=== PATIENT | female | born 1970 | race Caucasian/White ===

== ENCOUNTER → 2016-04-06 | Outpatient (CLI) | payer OTHER ==
[2016-04-06 14:12] LABS: Anisocytosis Slight; CH 23.4; CHCM 31.7; HCT 38.9 % (34.0-46.0); HDW 2.73; HGB 12.1 gm/dL (11.4-16.0); Hypochromasia Slight; MCH 23.1 pg (25.0-35.0); MCHC 31.1 g/dL (31.0-37.0); MCV 74.2 fL (80.0-100.0); Mean Platelet Volume 7.4; Microcytosis Moderate; RBC 5.25 m/uL (3.80-5.40); RDW 16.8 % (11.5-15.5); WBC 8.5 k/uL (3.8-10.6)
[2016-04-06 14:32] LABS: AST 17 U/L (14-36); Blood Urea Nitrogen 14 mg/dL (7-17); Potassium 4.5 mmol/L (3.5-5.1); Sodium 142 mmol/L (137-145); Total Bilirubin 0.4 mg/dL (0.2-1.3)
[2016-04-06 15:18] LABS: ALT 31 U/L (9-52); Alkaline Phosphatase 86 U/L (38-126); Anion Gap 11 mmol/L; Calcium 9.7 mg/dL (8.4-10.2); Carbon Dioxide 26 mmol/L (22-30); Chloride 105 mmol/L (98-107); Cholesterol 249 mg/dL (<200); Glucose 93 mg/dL (74-99); HDL Cholesterol 56 mg/dL (40-60); Non-African American GFR(MDRD) >60 (>60 ml/min/1.73 sqM); Total Protein 7.5 g/dL (6.3-8.2); Triglycerides 216 mg/dL (<150)
== END | disposition home or self-care (01) ==
LOC: LABWHC1 13:17
PROVIDERS: ATTEND Family Medicine
DX: K21.9 Gastro-esophageal reflux disease without esophagitis (principal); E03.9 Hypothyroidism, unspecified; E66.01 Morbid (severe) obesity due to excess calories; R73.01 Impaired fasting glucose
CPT/HCPCS: 36415; 80053; 80061; 83735; 84439; 84443; 84481; 85027

== ENCOUNTER → 2016-05-24 | Outpatient (CLI) | payer OTHER ==
--- NOTE | 2016-05-26 08:29 | MM ---
Reason for exam: screening (asymptomatic). Last mammogram was performed 2 years and 10 months ago. Physical Findings: A clinical breast exam by your physician is recommended on an annual basis and results should be correlated with mammographic findings. MG Screening Mammo w CAD Bilateral CC and MLO view(s) were taken. Prior study comparison: July 23, 2013, bilateral digital screening mammo w/CAD. There are scattered fibroglandular densities. No significant changes when compared with prior studies. ASSESSMENT: Negative, BI-RAD 1 RECOMMENDATION: Routine screening mammogram of both breasts in 1 year.
== END | disposition home or self-care (01) ==
LOC: RADMAMWWP 11:23
PROVIDERS: ATTEND Obstetrics & Gynecology
DX: Z12.31 Encounter for screening mammogram for malignant neoplasm of breast (principal)

== ENCOUNTER 2016-08-30 18:51 | Emergency (ER) | payer OTHER ==
[2016-08-30 19:27] VITALS: BP 131/76; PULSE 70; RESP 20; TEMP 97.9
--- NOTE | 2016-08-30 19:50 | ED ---
Burn/Smoke HPI - General Chief complaint: Burn/Smoke Inhalation Stated complaint: BURN ON LEFT HAND Time Seen by Provider: 08/30/16 19:34 Source: patient, RN notes reviewed Mode of arrival: ambulatory Limitations: no limitations - History of Present Illness Initial comments: Patient is a 46-year-old female presents to the emergency room for evaluation of left hand burn. Patient states that she was making tortillas on Tuesday night and the grease splashed up on top of her left hand/thumb. Patient states she immediately put her hand under cold water and applied aloe vera lotion on it. Patient states that the pain has improved but she noticed that the area has become hard. Patient states she wasn't sure if this was normal for a burn so she thought it should be evaluated. Patient denies numbness or tingling in her thumb. Patient states the burn is only on the dorsal portion of her thumb. Patient denies any other injuries during incident. Patient denies any swelling or surrounding erythema. - Related Data Previous Rx's Medication Instructions Recorded SILVER sulfADIAZINE CREAM 1 applic TOPICAL DAILY #1 tube 08/30/16 [Silvadene Cream] Allergies Allergy/AdvReac Type Severity Reaction Status Date / Time Penicillins Allergy Unknown Verified 08/30/16 19:27 Childhood Review of Systems ROS Statement: Those systems with pertinent positive or pertinent negative responses have been documented in the HPI. ROS Other: All systems not noted in ROS Statement are negative. Past Medical History Past Medical History: No Reported History History of Any Multi-Drug Resistant Organisms: None Reported Past Surgical History: No Surgical Hx Reported Past Psychological History: No Psychological Hx Reported Smoking Status: Never smoker Past Alcohol Use History: None Reported Past Drug Use History: None Reported General Exam - General Exam Comments Initial Comments: Sitting in exam room, no acute distress. Limitations: no limitations General appearance: alert, in no apparent distress Head exam: Present: atraumatic, normocephalic, normal inspection Eye exam: Present: normal appearance ENT exam: Present: normal exam Neck exam: Present: normal inspection Respiratory exam: Present: normal lung sounds bilaterally. Absent: respiratory distress Cardiovascular Exam: Present: regular rate, normal rhythm, normal heart sounds Extremities exam: Present: normal inspection Back exam: Present: normal inspection Neurological exam: Present: alert, oriented X3, CN II-XII intact, normal gait Psychiatric exam: Present: normal affect, normal mood Skin exam: Present: warm, dry, other (Healing first degree burn over base of thumb and healing second degree burn with small blisters over the dorsal portion of her thumb over the DIP joint. Burn is not circumferential.) Course Vital Signs 08/30/16 19:25 Temperature 97.9 F Pulse Rate 70 Respiratory 20 Rate Blood Pressure 131/76 O2 Sat by Pulse 99 Oximetry Medical Decision Making - Medical Decision Making Patient is a 46-year-old female presents to the emergency room for evaluation of left hand burn. Patient does appear to have a healing second-degree burn over dorsal portion of left thumb. Patient given Silvadene advise follow-up with primary care provider if symptoms are not improving. No significant swelling around the area. No surrounding erythema. No signs of infection. Patient states she understands everything that was discussed with her. Return parameters discussed. Case discussed with Dr. Chavez. Disposition Clinical Impression: Second degree burn Disposition: HOME SELF-CARE Condition: Good Instructions: Second Degree Burn (ED) Additional Instructions: Keep area clean with antibacterial soap and water. Apply Silvadene cream as directed. Take Tylenol or Motrin as needed for discomfort. Please follow up with primary care provider in 1-2 days for reevaluation. If any new symptom arises or symptoms worsen, return to ER as soon as possible. Prescriptions: SILVER sulfADIAZINE CREAM [Silvadene Cream] 1 applic TOPICAL DAILY #1 tube Referrals: Joie Park MD [Primary Care Provider] - 1-2 days Time of Disposition: 19:48
== END 2016-08-30 20:06 | disposition home or self-care (01) ==
LOC: EC 18:51
DX: T23.212A Burn of second degree of left thumb (nail), initial encounter (principal); T31.0 Burns involving less than 10% of body surface; Z88.0 Allergy status to penicillin; X19.XXXA Contact with other heat and hot substances, initial encounter
CPT/HCPCS: 99283

== ENCOUNTER → 2016-10-20 | Outpatient (CLI) | payer OTHER ==
--- NOTE | 2016-10-22 12:28 | P.STRESS ---
- Stress Test Note Stress Test Results/Findings: Exam Performed: stress test Exam Date: 10/20/16 Reason for Exam: Chest Pain Height: 5 ft 6 in Weight: 111.584 kg Protocol: Car Stage: 2 Duration of Exercise: 8:03 Resting Heart Rate: 69 Resting Blood Pressure: 129/94 Maximum Achieved Heart Rate: 159 Maximum Achieved Blood Pressure: 170/98 85% PMHR: 150 100% PMHR: 176 METS: 9.7 Technologist Comment: Stress Test Results/Findings: Resting EKG shows normal sinus rhythm with normal NH interval and QRS duration and normal ST-T waves no ST segment depression suggestive of ischemia is noted. No dysrhythmias are noted patient did not complain of any chest pain during the test. Conclusion resting electrocardiogram is not suggestive of ischemia. Patient's exercise tolerance is normal. No dysrhythmias are noted.
== END ==
LOC: RADNMMAIN 11:14
PROVIDERS: ATTEND Family Medicine
DX: R07.9 Chest pain, unspecified (principal)
CPT/HCPCS: 93017

== ENCOUNTER → 2016-12-16 | Outpatient (CLI) | payer OTHER ==
[2016-12-16 12:34] LABS: Appearance,Urine Clear (Clear); Bilirubin,Urine Negative (Negative); Glucose,Urine (UA) Negative (Negative); Ketones,Urine Negative (Negative); Leukocyte Esterase,Urine Negative (Negative); Nitrite,Urine Negative (Negative); Protein,Urine Negative (Negative); Specific Gravity,Urine 1.013 (1.001-1.035); UA Billing (MACRO vs. MICRO) CHEM; Urobilinogen,Urine <2.0 mg/dL (<2.0)
[2016-12-16 13:03] LABS: Anisocytosis Slight; Basophils % (A) 0 %; CH 24.4; Eosinophils # (A) 0.1 k/uL (0-0.7); Eosinophils % (A) 2 %; HCT 37.4 % (34.0-46.0); HGB 12.4 gm/dL (11.4-16.0); Luc % (Auto) 1; Lymphocytes # (A) 1.9 k/uL (1.0-4.8); Lymphocytes % (A) 22 %; MCH 23.9 pg (25.0-35.0); MCHC 33.2 g/dL (31.0-37.0); Mean Platelet Volume 8.8; Microcytosis Moderate; Monocytes # (A) 0.4 k/uL (0-1.0); Monocytes % (A) 5 %; Neutrophils # (A) 6.2 k/uL (1.3-7.7); Neutrophils % (A) 70 %; RBC 5.19 m/uL (3.80-5.40); RDW 18.1 % (11.5-15.5); WBC 8.7 k/uL (3.8-10.6); WBC (Perox) 9.13
[2016-12-16 13:16] LABS: Anion Gap 11 mmol/L; Blood Urea Nitrogen 11 mg/dL (7-17); Calcium 9.2 mg/dL (8.4-10.2); Carbon Dioxide 20 mmol/L (22-30); Chloride 106 mmol/L (98-107); Glucose 94 mg/dL (74-99); Non-African American GFR(MDRD) >60 (>60 ml/min/1.73 sqM); Potassium 4.6 mmol/L (3.5-5.1); Sodium 137 mmol/L (137-145)
[2016-12-16 15:48] LABS: Manual Review Performed
== END | disposition home or self-care (01) ==
LOC: LABPAT 11:40
PROVIDERS: ATTEND Urology
DX: E66.01 Morbid (severe) obesity due to excess calories (principal); E21.1 Secondary hyperparathyroidism, not elsewhere classified; E89.1 Postprocedural hypoinsulinemia; D50.9 Iron deficiency anemia, unspecified; K90.9 Intestinal malabsorption, unspecified; E55.9 Vitamin D deficiency, unspecified; K76.9 Liver disease, unspecified; N19 Unspecified kidney failure; K50.90 Crohn's disease, unspecified, without complications
CPT/HCPCS: 36415; 80048; 81003; 85025; 87086

== ENCOUNTER 2016-12-23 11:24 | Observation (INO) | payer OTHER ==
[2016-12-17 15:05] VITALS: BMI 37.5
[~2016-12-23 11:24] MED LIST: DEXAMETHASONE SOD PHOSPHATE 10 MG/ML 1 ML VIAL IV ONE; HYDROmorphone 0.5 MG/0.5 ML SYRINGE IVP PRN; ONDANSETRON 4 MG/2 ML VIAL IVP ONE; ceFAZolin 1,000 MG in DEXTROSE/WATER 1 50ML.BAG IV ONE
[2016-12-23] MEDS ORDERED: LIDOCAINE 1% 20 ML VIAL (10MG/ML) FOR IV START INTRADERMA ONE (12:21)
[2016-12-23] MEDS: LACTATED RINGERS 1,000 ML IV SCH (12:21)
[2016-12-23] MEDS ORDERED: VASOPRESSIN 20 UNIT/ML 1 ML VIAL SQ ONE (13:33)
[2016-12-23] MEDS ORDERED: KETOROLAC 30 MG/ML 1 ML VIAL ONE (13:35)
[2016-12-23] MEDS ORDERED: PROPOFOL 10 MG/ML 20 ML VIAL IV ONE (13:35)
[2016-12-23] MEDS ORDERED: LIDOCAINE 1% INJ 10MG/ML (20 ML MDV) ONE (13:35)
[2016-12-23] MEDS ORDERED: fentaNYL (PF) 50 MCG/ML 2 ML AMP ONE (13:35)
[2016-12-23] MEDS ORDERED: MIDAZOLAM 2 MG/2 ML VIAL ONE (13:35)
[2016-12-23] MEDS ORDERED: HYDROmorphone (PF) 1 MG/ML ONE (13:35)
[2016-12-23] MEDS ORDERED: SUCCINYLCHOLINE CHLORIDE 100 MG/5 ML SYR IV ONE (13:35)
[2016-12-23] MEDS ORDERED: ALBUTEROL NEBULIZED 2.5 MG/3 ML INHALATION PRN (14:45)
[2016-12-23] MEDS ORDERED: HYDROcodone/APAP 7.5-325MG 1 EACH TAB PO PRN (14:50)
--- NOTE | 2016-12-23 14:55 | P.OP ---
Date of Procedure: 12/23/16 Preoperative Diagnosis: Stress urinary incontinence Postoperative Diagnosis: Stress urinary incontinence Procedure(s) Performed: Pubovaginal sling with cystoscopy Anesthesia: LANDON Surgeon: Gilmar Kohler Estimated Blood Loss (ml): 25 Pathology: none sent Condition: stable Disposition: PACU Indications for Procedure: The patient is a 46-year-old morbidly obese female with stress urinary incontinence she comes for a pubovaginal sling with autologous fascia Description of Procedure: Patient is brought to the operating suite she is given a successful general endotracheal anesthesia. She's placed lithotomy position with a sterile vaginal prep and drape. She also has an abdominal prep. A Heck catheters introduced sterilely. The labia are sewn laterally with 2-0 silk. A vaginal speculum was placed. The anterior vaginal mucosa was elevated off the submucosa with 10 mL of 20 units of Pitressin and 60 mL of saline. A midline suburethral incision is made. With Metzenbaum scissors I dissect lateral the bladder neck bilaterally. I penetrate the endopelvic fascia bilaterally. I then make a suprapubic Pfannenstiel incision. I dissect down to rectus fascia. The rectus fascias cleaned off. A 2 x 8 cm section of rectus fascia is excised. This is for the graft. Rectus fascias closed with 2 running 0 PDS. Through the ends of the graft are placed 2-0 Prolene's. I then passed the Stamey needles retropubically at the corners of the pubis into the vaginal space. A make sure not to injure the bladder. This is confirmed endoscopically with a 17-Kinyarwanda cystoscope with Foroblique lens. I attached the Prolenes placed in the ends of the graft to the Stamey needles and pull the Stamey needles back suprapubically. The graft lay at the bladder neck somewhat nicely. I attached the graft to the subcu 0 silk tissue with 3-0 Vicryl. The Prolenes were then tied to one another over the rectus fascia such that one to 2 fingerbreadths can fit underneath the Prolene. I then closed the subcutaneous tissue and the skin with 4-0 Vicryl. I closed the vaginal mucosa with 2-0 Vicryl. A vaginal packing is placed. The labial stitches are removed. The urine remains clear in the Heck. The patient is awakened and returned recovery room good condition. Blood loss is approximately 25 mL.
[2016-12-23] MEDS ORDERED: LACTATED RINGERS 1,000 ML IV ONE ×2 (15:18)
[2016-12-23] MEDS: ONDANSETRON 4 MG/2 ML VIAL IVP PRN (16:18)
[2016-12-23] MEDS: KETOROLAC 30 MG/ML 1 ML VIAL IVP PRN (18:24)
[2016-12-24] MEDS: ONDANSETRON 4 MG/2 ML VIAL IVP PRN (00:40)
[2016-12-24] MEDS: KETOROLAC 30 MG/ML 1 ML VIAL IVP PRN ×2 (00:40→06:53)
[2016-12-24] MEDS: DEXTROSE 5%-0.45% NACL 1,000 ML IV SCH ×2 (00:54→07:09)
[2016-12-24 04:27] VITALS: RESP 16
--- NOTE | 2016-12-24 06:51 | P.PN ---
Subjective The patient underwent a pubovaginal sling yesterday. She did well overnight. She has some incisional pain as expected. Her vital signs are stable. The catheter and packing will be removed. If she voids well she'll probably discharged home later today. Objective - Vital Signs Vital signs: Vital Signs Temp 97.2 F L 12/24/16 03:10 Pulse 61 12/24/16 03:10 Resp 16 12/24/16 03:10 BP 110/63 12/24/16 03:10 Pulse Ox 100 12/24/16 03:10 Intake & Output 12/23/16 12/23/16 12/24/16 06:59 18:59 06:59 Intake Total 1250 Output Total 550 1100 Balance 700 -1100 Intake: IV 1250 Output: Urine 500 1100 Uretheral (Heck) 300 Estimated Blood Loss 50 Other: Voiding Method Indwelling Catheter # Emeses 1
[2016-12-24 06:52] VITALS: BP 121/70; TEMP 97.7
--- NOTE | 2016-12-24 06:52 | P.DS ---
Providers Date of admission: 12/24/16 02:07 Attending physician: Gilmar Kohler Primary care physician: [facility] Course: The patient was admitted 12/23/2016 for a pubovaginal sling. She did well. Overnight her pain was controlled with pain medication. Vital signs are stable. Her urine output was good. The catheters removed this morning. If she voids well she'll be discharged home later today. She'll resume her home medication. Activity will be limited. She'll be given a prescription of Siloam for pain. She'll follow-up in the office in one week. Procedures: Pubovaginal sling Patient Condition at Discharge: Good Plan - Discharge Summary New Discharge Prescriptions: New HYDROcodone/APAP 5-325MG [Siloam 5-325] 1 tab PO Q4HR PRN #20 tab PRN Reason: Pain Control No Action Diclofenac Sodium [Voltaren] 75 mg PO BID PRN PRN Reason: Pain Albuterol Inhaler [Ventolin Hfa Inhaler] 1 - 2 puff INHALATION RT-Q6H PRN PRN Reason: Shortness Of Breath Omeprazole 20 mg PO DAILY Discharge Medication List Albuterol Inhaler [Ventolin Hfa Inhaler] 1 - 2 puff INHALATION RT-Q6H PRN [History] Diclofenac Sodium [Voltaren] 75 mg PO BID PRN 12/17/16 [History] Omeprazole 20 mg PO DAILY 12/17/16 [History] HYDROcodone/APAP 5-325MG [Siloam 5-325] 1 tab PO Q4HR PRN #20 tab 12/24/16 [Rx] Follow up Appointment(s)/Referral(s): Gilmar Kohler MD [STAFF PHYSICIAN] - 1 Week Activity/Diet/Wound Care/Special Instructions: Patient may shower. Discharge Disposition: HOME SELF-CARE
[2016-12-24] MEDS: LACTATED RINGERS 1,000 ML IV SCH (07:09)
[2016-12-24 07:14] VITALS: PULSE 60
[2016-12-24] MEDS ORDERED: PANTOPRAZOLE 40 MG TABLET PO SCH (07:30)
== END 2016-12-24 13:31 | disposition home or self-care (01) ==
LOC: OR 11:24 → 6PED 14:56 → OR 12-24 02:06 → 6PED 12-24 02:07
PROVIDERS: ADMIT Urology; ATTEND Urology
DX: N39.46 Mixed incontinence (principal); Z79.899 Other long term (current) drug therapy; Z88.0 Allergy status to penicillin; J45.909 Unspecified asthma, uncomplicated
CPT/HCPCS: 57288; G0378; J2250; J1100; J2405 ×2; J2001; J3010; J1885 ×2; J1170; J0690; J0330; J2704

== ENCOUNTER 2017-01-02 00:19 | Emergency (ER) | payer OTHER ==
[2017-01-02 00:23] VITALS: BP 148/73; PULSE 71; RESP 20; TEMP 98.3
--- NOTE | 2017-01-02 01:01 | ED ---
Skin/Abscess/FB HPI - General Chief complaint: Skin/Abscess/Foreign Body Stated complaint: post surgery concerns Time Seen by Provider: 01/02/17 00:39 Source: patient Mode of arrival: ambulatory Limitations: no limitations - History of Present Illness Initial comments: 46-year-old female patient presents today for evaluation of her suprapubic abdominal incision. Patient underwent bladder sling surgery with Dr. Kohler on 12/30/2016. States that things have been healing up nicely. She states that her stay sugars have come off. She states that she has been having some coughing for the last week and a half. States that tonight she was in bed when she coughed she felt something give way near her incision and when she looked down she had a wet spot on the bed. States the drainage was clear and contained no blood or pus. She states that the fluid did not have an odor. She states that she has not had any significant abdominal pain. States that she has been caring for her incision as directed by her surgeon. She denies any fever, chills, nausea, vomiting, hematuria, dysuria, urinary urgency, urinary frequency, constipation, or diarrhea. She denies any shortness of breath, sputum production, nasal congestion, or nasal drainage. - Related Data Home Medications Medication Instructions Recorded Confirmed Albuterol Inhaler [Ventolin Hfa 1 - 2 puff INHALATION RT-Q6H PRN 12/17/16 Inhaler] Diclofenac Sodium [Voltaren] 75 mg PO BID PRN 12/17/16 01/02/17 Omeprazole 20 mg PO DAILY 12/17/16 01/02/17 Previous Rx's Medication Instructions Recorded HYDROcodone/APAP 5-325MG [Dolphin 1 tab PO Q4HR PRN #20 tab 12/24/16 5-325] Allergies Allergy/AdvReac Type Severity Reaction Status Date / Time Penicillins Allergy Unknown Verified 01/02/17 00:23 Childhood Review of Systems ROS Statement: Those systems with pertinent positive or pertinent negative responses have been documented in the HPI. ROS Other: All systems not noted in ROS Statement are negative. Past Medical History Past Medical History: No Reported History History of Any Multi-Drug Resistant Organisms: None Reported Past Surgical History: Hernia Repair Past Psychological History: No Psychological Hx Reported Smoking Status: Never smoker Past Alcohol Use History: None Reported Past Drug Use History: None Reported - Past Family History Father Family Medical History: No Reported History General Exam Limitations: no limitations General appearance: alert, in no apparent distress, other (His is a well- developed, obese female patient in no acute distress. Vital signs upon presentation are temperature 98.3F, pulse 71, respirations 20, blood pressure 148/73, 98% on room air.) Respiratory exam: Present: normal lung sounds bilaterally. Absent: respiratory distress, wheezes, rales, rhonchi, stridor Cardiovascular Exam: Present: regular rate, normal rhythm, normal heart sounds. Absent: systolic murmur, diastolic murmur, rubs, gallop, clicks GI/Abdominal exam: Present: soft, normal bowel sounds, other (There is a horizontal suprapubic incision. It is well approximated. No surrounding erythema, no drainage noted at this time.). Absent: distended, tenderness, guarding, rebound, rigid Neurological exam: Present: alert, oriented X3, CN II-XII intact Psychiatric exam: Present: normal affect, normal mood Skin exam: Present: warm, dry, intact, normal color. Absent: rash Course Vital Signs 01/02/17 00:21 Temperature 98.3 F Pulse Rate 71 Respiratory 20 Rate Blood Pressure 148/73 O2 Sat by Pulse 98 Oximetry Medical Decision Making - Medical Decision Making 46-year-old female patient presented for evaluation of her superpubic abdominal incision. She is status post bladder sling surgery with Dr. Kohler on 2016. Physical examination did reveal a well approximated suprapubic incision with no surrounding erythema and no current drainage. Patient did have a pad over the site without any evidence of drainage to the pad. Patient vital signs are stable, she is afebrile. She will be discharged home to follow-up with her urologist on Tuesday as she has planned. She is instructed to splint while coughing. I did offer her cough medication to assist however she states she feels it is improving and does not want anything at this time. I did instruct her to return here immediately for any new, worsening, or concerning symptoms. She verbalized understanding and agreed with this plan. Disposition Clinical Impression: Encounter for postoperative wound check Disposition: HOME SELF-CARE Condition: Good Instructions: Acute Wound Care (ED) Additional Instructions: Keep area clean and dry. Follow instructions given to by her surgeon for postsurgical care. Follow-up with your surgeon as you have planned. Return immediately for any new, worsening, or concerning symptoms. Referrals: Joie Park MD [Primary Care Provider] - 1-2 days Gilmar Kohler MD [STAFF PHYSICIAN] - 1-2 days Time of Disposition: 01:01
== END 2017-01-02 01:13 | disposition home or self-care (01) ==
LOC: EC 00:19
DX: Z48.01 Encounter for change or removal of surgical wound dressing (principal); E66.9 Obesity, unspecified; Z68.37 Body mass index [BMI] 37.0-37.9, adult; Z88.0 Allergy status to penicillin; Z79.899 Other long term (current) drug therapy
CPT/HCPCS: 99283

== ENCOUNTER → 2017-11-23 | Outpatient (CLI) | payer OTHER ==
--- NOTE | 2017-11-23 10:02 | FL ---
EXAMINATION TYPE: FL barium swallow DATE OF EXAM: 11/23/2017 COMPARISON: None HISTORY: Hiatal hernia, gastroesophageal reflux TECHNIQUE: A double air contrast UGI study is performed. FINDINGS: Overhead radiographs were obtained. Hiatal hernia is identified. In the horizontal drinking position there is incomplete stripping of the esophageal bolus. Mild presbyesophagus may be present. Hiatal he rnia is identified on overhead radiographs. No reflux was observed during the exam. The contour appears normal through the esophagus. No intraluminal or extramural defect is evident. IMPRESSIONS: 1. Small hiatal hernia. 2. Mild presbyesophagus.
--- NOTE | 2017-11-23 16:27 | US ---
EXAMINATION TYPE: US gallbladder DATE OF EXAM: 11/23/2017 COMPARISON: NONE CLINICAL HISTORY: K21.9 Gastroesophageal Reflux Disease,K44.9 Hiatal. Acid reflux EXAM MEASUREMENTS: Liver Length: 18.3 cm Gallbladder Wall: 0.4 cm CBD: 0.5 cm Right Kidney: 11.9 x 5.3 x 4.6 cm Technical limitations due to patient's body habitus and large amount of overlying bowel content Pancreas: limited evaluation due to overlying bowel Liver: enlarged, heterogeneous, difficult to penetrate Gallbladder: stones, GB wall thickened Evidence for sonographic Mcintyre's sign: No CBD: appears wnl as visualized Right Kidney: no evidence of hydronephrosis IMPRESSION: 1. Gallstones. Thickened gallbladder wall. Correlate for acute cholecystitis. 2. Moderate fatty infiltration liver
== END | disposition home or self-care (01) ==
LOC: RADUSWWP 06:58
PROVIDERS: ATTEND Surgery Plastic and Reconstructive Surgery
DX: K80.20 Calculus of gallbladder without cholecystitis without obstruction (principal); K76.0 Fatty (change of) liver, not elsewhere classified; K44.9 Diaphragmatic hernia without obstruction or gangrene; K22.8 Other specified diseases of esophagus; Z88.0 Allergy status to penicillin; Z88.6 Allergy status to analgesic agent
CPT/HCPCS: 74220; 76705

== ENCOUNTER 2018-01-04 08:25 | Day surgery (SDC) | payer OTHER ==
[2018-01-02 10:10] VITALS: BMI 40.6
--- NOTE | 2018-01-04 07:58 | P.GSHP ---
History of Present Illness H&P Date: 01/04/18 CHIEF COMPLAINT: GERD HISTORY OF PRESENT ILLNESS: The patient is a 47-year-old female who presents reports gastroesophageal reflux disease. Upper endoscopy was offered for further evaluation and management. PAST MEDICAL HISTORY: Please see list. PAST SURGICAL HISTORY: Please see list. MEDICATIONS: Please see list. ALLERGIES: Please see list. SOCIAL HISTORY: No illicit drug use FAMILY HISTORY: No reports of Crohn disease or ulcerative colitis. REVIEW OF ORGAN SYSTEMS: CONSTITUTIONAL: No reports of fevers or chills. GI: Denies any blood in stools or constipation. PHYSICAL EXAM: VITAL SIGNS: Stable GENERAL: Well-developed and pleasant in no acute distress. HEENT: No scleral icterus. Extraocular movements grossly intact. Moist buccal mucosa. NECK: Supple without lymphadenopathy. CHEST: Unlabored respirations. Equal bilateral excursions. CARDIOVASCULAR: Regular rate and rhythm. Distal 2+ pulses. ABDOMEN: Soft, nondistended. MUSCULOSKELETAL: No clubbing, cyanosis, or edema. ASSESSMENT: 1. Gastroesophageal reflux disease PLAN: 1. Recommend proceeding with an upper endoscopy Past Medical History Past Medical History: GERD/Reflux History of Any Multi-Drug Resistant Organisms: None Reported Past Surgical History: Hernia Repair Additional Past Surgical History / Comment(s): EGD Past Anesthesia/Blood Transfusion Reactions: Postoperative Nausea & Vomiting ( PONV) Smoking Status: Never smoker - Past Family History Father Family Medical History: No Reported History Medications and Allergies Home Medications Medication Instructions Recorded Confirmed Type Albuterol Inhaler [Ventolin Hfa 1 - 2 puff INHALATION RT-Q6H PRN 12/17/16 History Inhaler] Diclofenac Sodium [Voltaren] 75 mg PO BID PRN 12/17/16 01/02/18 History Omeprazole 20 mg PO DAILY 12/17/16 01/02/18 History Allergies Allergy/AdvReac Type Severity Reaction Status Date / Time Penicillins Allergy Unknown Verified 01/02/18 10:04 Childhood
[~2018-01-04 08:25] MED LIST changes: -DEXAMETHASONE SOD PHOSPHATE 10 MG/ML 1 ML VIAL IV ONE; -HYDROmorphone 0.5 MG/0.5 ML SYRINGE IVP PRN; +LACTATED RINGERS 1,000 ML IV SCH; -ONDANSETRON 4 MG/2 ML VIAL IVP ONE; -ceFAZolin 1,000 MG in DEXTROSE/WATER 1 50ML.BAG IV ONE
[2018-01-04 10:13] VITALS: TEMP 97.2
[2018-01-04] MEDS ORDERED: LIDOCAINE 1% 20 ML VIAL (10MG/ML) FOR IV START INTRADERMA ONE (10:16)
[2018-01-04] MEDS ORDERED: PROPOFOL 10 MG/ML 20 ML VIAL IV ONE (10:27)
[2018-01-04] MEDS ORDERED: LIDOCAINE 1% INJ 10MG/ML (20 ML MDV) ONE (10:27)
--- NOTE | 2018-01-04 10:44 | P.PCN ---
Date of Procedure: 01/04/18 Description of Procedure: PREOPERATIVE DIAGNOSIS: Gastroesophageal reflux disease. Morbid obesity. POSTOPERATIVE DIAGNOSIS: Morbid obesity. Erosive esophagitis with esophageal ulcer Gastroesophageal reflux disease. Diaphragmatic hiatal hernia OPERATION: Esophagogastroduodenoscopy with biopsies along antrum and distal esophagus SURGEON: Regla Josue MD ANESTHESIA: MAC. INDICATIONS: The patient is a 47-year-old female who presents with a history of reflux disease. Benefits and risks of the procedure were described. Informed consent was obtained. DESCRIPTION: The patient was brought into the endoscopy suite and laid in the left lateral decubitus position. An Olympus gastroscope was passed along the posterior oropharynx down to the distal esophagus where the squamocolumnar junction was encountered at 38 cm from the incisors. The stomach was entered and no bile reflux was found. Additional findings are listed below. Biopsies with cold forceps were obtained of the antrum. The first through third portion of the duodenum was examined and unremarkable. Retroflexion of the scope confirmed Hill grade 4 lower esophageal valve. The squamocolumnar junction demonstrated LA grade C erosive esophagitis. The stomach was desufflated. The patient tolerated the procedure well. FINDINGS: Squamocolumnar junction 30 cm from the incisors. Diaphragmatic hiatus at 38 cm. Hiatal hernia, 8 cm Hill grade 4 lower esophageal valve. LA grade C erosive esophagitis. Esophageal ulcerations between 30-36 cm from the incisors No active duodenitis. Chronic gastritis RECOMMENDATIONS: Upper endoscopy as needed. Recommend antacid therapy Plan - Discharge Summary New Discharge Prescriptions: No Action Diclofenac Sodium [Voltaren] 75 mg PO BID PRN PRN Reason: Pain Albuterol Inhaler [Ventolin Hfa Inhaler] 1 - 2 puff INHALATION RT-Q6H PRN PRN Reason: Shortness Of Breath Omeprazole 20 mg PO DAILY Discharge Medication List Albuterol Inhaler [Ventolin Hfa Inhaler] 1 - 2 puff INHALATION RT-Q6H PRN [History] Diclofenac Sodium [Voltaren] 75 mg PO BID PRN 12/17/16 [History] Omeprazole 20 mg PO DAILY 12/17/16 [History]
[2018-01-04 11:04] VITALS: RESP 18
[2018-01-04 11:56] VITALS: BP 120/76; PULSE 61
== END 2018-01-04 12:21 | disposition home or self-care (01) ==
LOC: ORWHC2ENDO 08:25
PROVIDERS: ATTEND Surgery Plastic and Reconstructive Surgery
DX: K29.50 Unspecified chronic gastritis without bleeding (principal); K21.0 Gastro-esophageal reflux disease with esophagitis; K22.10 Ulcer of esophagus without bleeding; K44.9 Diaphragmatic hernia without obstruction or gangrene; E66.01 Morbid (severe) obesity due to excess calories; Z68.41 Body mass index [BMI] 40.0-44.9, adult; Z79.899 Other long term (current) drug therapy; Z88.0 Allergy status to penicillin
CPT/HCPCS: 81025; 43239; J2001; J2704; 88305

== ENCOUNTER → 2018-07-13 | Outpatient (CLI) | payer OTHER ==
[2018-07-13 16:55] LABS: Anisocytosis Slight; HGB 11.4 gm/dL (11.4-16.0); Hypochromasia Moderate; MCH 22.9 pg (25.0-35.0); MCHC 30.9 g/dL (31.0-37.0); MCV 74.2 fL (80.0-100.0); Mean Platelet Volume 7.3; Microcytosis Slight; Platelet Count 271 k/uL (150-450); RBC 4.98 m/uL (3.80-5.40); WBC 7.7 k/uL (3.8-10.6)
== END ==
LOC: LABWHC1 16:00
PROVIDERS: ATTEND Surgery Plastic and Reconstructive Surgery
DX: Z01.812 Encounter for preprocedural laboratory examination (principal)
CPT/HCPCS: 36415; 85027

== ENCOUNTER 2018-07-14 07:24 | Day surgery (SDC) | payer OTHER ==
[2018-07-12 14:14] VITALS: BMI 46.0
[~2018-07-14 07:24] MED LIST changes: +DEXAMETHASONE SOD PHOSPHATE 10 MG/ML 1 ML VIAL IV ONE; +HEPARIN SODIUM,PORCINE 5,000 UNIT/ML 1 ML VIAL SQ ONE; +HYDROmorphone 0.5 MG/0.5 ML SYRINGE IVP PRN; +INDOCYANINE GREEN 25 MG VIAL IV STA; +MORPHINE SULFATE 4 MG/ML SYRINGE IV PRN; +ONDANSETRON 4 MG/2 ML VIAL IVP ONE; +ONDANSETRON 4 MG/2 ML VIAL IVP PRN; +ceFAZolin IN SWFI 2 GM/20 ML SYRINGE IVP ONE
--- NOTE | 2018-07-14 07:24 | P.GSHP ---
History of Present Illness H&P Date: 07/14/18 CHIEF COMPLAINT: Cholecystitis HISTORY OF PRESENT ILLNESS: The patient is a 48-year-old female who presents with history of epigastric including right upper quadrant abdominal pain. She underwent diagnostic studies for her gallbladder. Separately her clinical picture was consistent with cholecystitis. Now she presents for surgical intervention. PAST MEDICAL HISTORY: Please see list PAST SURGICAL HISTORY: Please see list MEDICATIONS: Please see list ALLERGIES: Denies. SOCIAL HISTORY: No illicit drug use or recent tobacco use FAMILY HISTORY: Pertinent for gallbladder disease REVIEW OF ORGAN SYSTEMS: CONSTITUTIONAL: No reports of fevers or chills. HEENT: Denies any troubles with the vision or hearing. ENDOCRINE: No reports of hypothyroidism. No diabetes. PHYSICAL EXAM: VITAL SIGNS: Afebrile vital signs stable GENERAL: Well-developed pleasant in no acute distress. HEENT: No scleral icterus. Extraocular movements grossly intact. Moist buccal mucosa. NECK: Supple without lymphadenopathy. CHEST: Unlabored respirations. Equal bilateral excursions. CARDIOVASCULAR: Regular rate regular rhythm rhythm. Distal 2+ pulses. ABDOMEN: Soft, nondistended. Tender along the epigastrium and right upper quadrant. MUSCULOSKELETAL: No clubbing, cyanosis, or edema. NEURO: Cranial nerves II to XII within normal limits. No focal or lateralizing signs. PSYCH: Alert and oriented to person, place and time. SKIN: Well-perfused good skin turgor. ASSESSMENT: 1. Epigastric and right upper quadrant abdominal pain 2. Chronic cholecystitis 3. Symptomatic gallstones. PLAN: 1. Will need a robotic cholecystectomy possible open. Benefits and risks were described. 2. Heparin for DVT prophylaxis 5000 units. 3. Antibiotic prophylaxis. Past Medical History Past Medical History: Asthma, GERD/Reflux History of Any Multi-Drug Resistant Organisms: None Reported Past Surgical History: Hernia Repair Additional Past Surgical History / Comment(s): bladder mesh 2017 Past Anesthesia/Blood Transfusion Reactions: Postoperative Nausea & Vomiting (PONV) Additional Past Anesthesia/Blood Transfusion Reaction / Comment(s): pt states "after my bladder surgery I threw up I was told by nurse that I was allergic to anesthesia" Smoking Status: Never smoker - Past Family History Father Family Medical History: Cancer Additional Family Medical History / Comment(s): stomach cancer Mother Additional Family Medical History / Comment(s): from "toxicity in blood" Medications and Allergies Home Medications Medication Instructions Recorded Confirmed Type Albuterol Inhaler [Ventolin Hfa 1 - 2 puff INHALATION RT-Q6H PRN 12/17/16 07/12/18 History Inhaler] Omeprazole 40 mg PO DAILY #90 capsule. 01/04/18 07/12/18 Rx Menopaupanic 1 tab PO DAILY 07/12/18 07/12/18 History Allergies Allergy/AdvReac Type Severity Reaction Status Date / Time Penicillins Allergy Unknown Verified 07/12/18 14:06 Childhood anesthesia Allergy Nausea & Uncoded 07/12/18 14:10 Vomiting
[2018-07-14] MEDS ORDERED: LIDOCAINE 1% 20 ML VIAL (10MG/ML) FOR IV START INTRADERMA ONE ×2 (08:00)
[2018-07-14] MEDS ORDERED: SCOPOLAMINE 1.5MG/72HR PATCH TRANSDERM ONE (08:28)
[2018-07-14] MEDS ORDERED: fentaNYL (PF) 50 MCG/ML 2 ML AMP IVP ONE (08:42)
[2018-07-14] MEDS ORDERED: MIDAZOLAM (PF) 2 MG/2 ML VIAL IVP ONE (08:42)
[2018-07-14] MEDS ORDERED: NEOSTIGMINE 1 MG/ML 10 ML VIAL ONE (08:50)
[2018-07-14] MEDS ORDERED: PROPOFOL 10 MG/ML 20 ML VIAL IV ONE (08:50)
[2018-07-14] MEDS ORDERED: ROPIVACAINE 5 MG/ML 30 ML VIAL ONE (08:50)
[2018-07-14] MEDS ORDERED: SUCCINYLCHOLINE CHLORIDE 100 MG/5 ML SYR IV ONE (08:50)
[2018-07-14] MEDS ORDERED: GLYCOPYRROLATE 0.2 MG/ML 2 ML VIAL ONE (08:50)
[2018-07-14] MEDS ORDERED: LIDOCAINE 2%-EPI 1:100,000 20 ML VIAL ONE (08:50)
[2018-07-14] MEDS ORDERED: ROCURONIUM BROMIDE 10 MG/ML 10 ML VIAL IV ONE (08:50)
[2018-07-14] MEDS ORDERED: LIDOCAINE 1% INJ 10MG/ML (20 ML MDV) ONE (08:50)
[2018-07-14] MEDS ORDERED: fentaNYL (PF) 50 MCG/ML 2 ML AMP ONE (08:50)
[2018-07-14 08:58] LABS: Chloride 105 mmol/L (98-107)
[2018-07-14 09:01] LABS: ALT 40 U/L (9-52); AST 23 U/L (14-36); Albumin 4.1 g/dL (3.5-5.0); Alkaline Phosphatase 75 U/L (38-126); Anion Gap 10 mmol/L; Blood Urea Nitrogen 17 mg/dL (7-17); Calcium 9.6 mg/dL (8.4-10.2); Carbon Dioxide 25 mmol/L (22-30); Glucose 114 mg/dL (74-99); Potassium 4.1 mmol/L (3.5-5.1); Sodium 140 mmol/L (137-145); Total Bilirubin 0.3 mg/dL (0.2-1.3)
[2018-07-14] MEDS ORDERED: BUPIVACAIN-EPI 0.5%-1:200,000 30 ML VIAL SQ ONE ×2 (09:12→09:16)
--- NOTE | 2018-07-14 09:25 | P.ONQ ---
Anesthesiology Proc Note - PNB - Peripheral Nerve Block Performed Bilateral Transversus Abdominis Single Time Out Performed: Yes Procedure Start Time: 08:41 Procedure Stop Time: 08:45 Indication: Acute Post-Operative Pain, Analgesia, Dx/Pain Location, Requested by physician Sedation Type: Sedate with meaningful contact maintained Preparation: Sterile Prep Position: Supine Catheter: None Needle Types: On-Q Needle Size: 100mm (4") Needle Gauge: 21 Technique: Ultrasound Injectate: Other (see comment) (0.25% ropivacaine and 2% lidocaine with 1:200k epi 20cc each) Blood Aspirated: No Pain Paresthesia on Injection Noted: No Resistance on Injection: Normal Events: Uneventful and Well Tolerated
[2018-07-14] MEDS ORDERED: LACTATED RINGERS 1,000 ML IV ONE ×2 (09:34→13:10)
--- NOTE | 2018-07-14 09:58 | P.OP ---
Date of Procedure: 07/14/18 Description of Procedure: SURGEON: REGLA JOSUE MD PREOPERATIVE DIAGNOSES: 1. Right upper quadrant abdominal pain 2. Chronic cholecystitis with gallstones 3. Morbid obesity due to excess calories, BMI 46.1 4. Asthma 5. Gastroesophageal reflux disease POSTOPERATIVE DIAGNOSES: 1. Right upper quadrant abdominal pain 2. Chronic cholecystitis with gallstones 3. Morbid obesity due to excess calories, BMI 46.1 4. Asthma 5. Gastroesophageal reflux disease 6. Fatty liver disease OPERATION: Robotic-assisted da Oneil Xi laparoscopic cholecystectomy, multiport ESTIMATED BLOOD LOSS: 5 mL. SPECIMENS REMOVED: Gallbladder. COMPLICATIONS: None. OPERATIVE FINDINGS: 1. Chronic cholecystitis with gallstones INDICATIONS: The patient is a 48-year-old female who presents with cholelcystitis. Surgical intervention with a laparoscopic cholecystectomy was described at length including injury to the biliary tree, bleeding, infection, need for further surgery. Informed consent was obtained. Robotic assisted laparoscopic approach was described. Benefits and risks of the pr ocedure including but not limited to bleeding, infection, injury to the biliary tree was described. Informed consent was obtained. DESCRIPTION OF PROCEDURE: Patient was brought to the operating room, placed in supine position. After general induction, the abdomen had been prepped and draped in standard sterile fashion. The robotic da Oneil XI system was primed. After a timeout protocol was performed, the patient had been prepped and draped in standard sterile fashion. A 5 mm 0 degrees laparoscopic trocar entry was performed along the left upper quadrant. The abdomen insufflated to 15 mmHg pressure which was tolerated well. Diagnostic laparoscopy demonstrated no injury to bowel viscera or mesentery. The liver surface was unremarkable. Next, two 8 mm robotic ports were placed a long the right upper abdomen. The camera 8-mm port was maintained along the epigastrium. Another 8 mm port was placed along the left upper abdominal wall after exchanging the 5 mm port. Please note that the ports were placed at least 10 to 15 cm away from the target anatomy of the gallbladder. The robot was docked along the left lateral abdomen. The patient was repositioned in reverse Trendelenburg position. Using a grasper for arm 3, a grasper for arm 4, including hook cautery for arm 1, the robotic system was docked and primed as described. Instruments were interchanged by the instruction assistant principal including hook cautery, Bovie cautery and clip appliers. I had sat at the console. The gallbladder fundus was retracted over the dome of the liver. Initial attention was brought to the infundibulum which was gently retracted in the inferior lateral approach. Using a grasper, the cystic duct including the cystic artery was carefully skeletonized. Large PLASTIC clips were used throughout the entire case. Using a clip vp publisher development 2 clips were placed proximally, and 1 clip was placed distally along the cystic duct and then cauterized with the cautery. Again care was taken to avoid any injury to the biliary tree as the common bile duct was clearly visualized during this portion of dissection. Next, the cystic artery was similarly clipped and cauterized. Electro-Bovie cautery was used to remove the gallbladder from the hepatic fossa. Hemostasis was checked and found to be adequate. The robot was undocked. I re-scrubbed into the case. Using a 10 mm Endo Catch bag via the left upper quadrant incision, the specimen was removed from the abdominal cavity. All pneumoperitoneum instruments were evacuated from the abdominal cavity. The incisions were reapproximated using 4-0 Monocryl in an interrupted subcuticular fashion. Fascial defects were less than 8 mm in size. Please note along the trocar sites, local anesthetic was placed as a field block prior to insertion of all instruments. Liquid glue was applied to the skin. At the end of the procedure needle, sponge, and instrument count had been verified correct by the surgical supply assistant. The patient was transferred to postanesthesia care unit in stable condition. Intraoperative films were shared with the patient's family who were very pleased with the level of care. Plan - Discharge Summary Discharge Rx Participant: No New Discharge Prescriptions: New RX: Ibuprofen [Motrin] 600 mg PO Q8HR PRN #30 tab PRN Reason: Pain RX: HYDROcodone/APAP 5-325MG [[place] 5-325] 1 tab PO Q6HR PRN 3 Days #10 tab PRN Reason: Pain No Action Albuterol Inhaler [Ventolin Hfa Inhaler] 1 - 2 puff INHALATION RT-Q6H PRN PRN Reason: Shortness Of Breath RX: Omeprazole 40 mg PO DAILY #90 capsule.dr Rivera 1 tab PO DAILY Discharge Medication List Albuterol Inhaler [Ventolin Hfa Inhaler] 1 - 2 puff INHALATION RT-Q6H PRN 12/17/16 [History] RX: Omeprazole 40 mg PO DAILY #90 capsule. 01/04/18 [Rx] Menopaupanic 1 tab PO DAILY 07/12/18 [History] RX: HYDROcodone/APAP 5-325MG [[place] 5-325] 1 tab PO Q6HR PRN 3 Days #10 tab 07/14/18 [Rx] RX: Ibuprofen [Motrin] 600 mg PO Q8HR PRN #30 tab 07/14/18 [Rx] Follow up Appointment(s)/Referral(s): Regla Josue MD [STAFF PHYSICIAN] - 07/17/18 Patient Instructions/Handouts: Laparoscopic Cholecystectomy (DC) Activity/Diet/Wound Care/Special Instructions: No lifting over 4 pounds in 1 week. May shower. No bathtub soaks. No fatty greasy foods for 2 days. Discharge Disposition: HOME SELF-CARE
[2018-07-14 10:02] VITALS: TEMP 97.6
[2018-07-14 10:59] VITALS: RESP 16
[2018-07-14] MEDS ORDERED: ONDANSETRON 4 MG/2 ML VIAL IVP ONE (12:46)
[2018-07-14] MEDS ORDERED: HYDROcodone/APAP 5-325MG 1 EACH TAB PO ONE (13:48)
[2018-07-14 14:00] VITALS: BP 126/81; PULSE 64
== END 2018-07-14 14:22 | disposition home or self-care (01) ==
LOC: OR 07:24
PROVIDERS: ATTEND Surgery Plastic and Reconstructive Surgery
DX: K80.10 Calculus of gallbladder with chronic cholecystitis without obstruction (principal); E66.01 Morbid (severe) obesity due to excess calories; Z68.42 Body mass index [BMI] 45.0-49.9, adult; J45.909 Unspecified asthma, uncomplicated; K21.9 Gastro-esophageal reflux disease without esophagitis; K76.0 Fatty (change of) liver, not elsewhere classified; Z88.0 Allergy status to penicillin; Z88.4 Allergy status to anesthetic agent; Z79.899 Other long term (current) drug therapy; Z88.6 Allergy status to analgesic agent
CPT/HCPCS: 47562; 64488; 81025; 88304; 80053; J1644; J1100; J2710; J2405; J2001; J3010; J2795; J0330; J2704; J0690; J2250

== ENCOUNTER → 2019-05-18 | Day surgery (SDC) | payer OTHER ==
[2019-05-16 10:50] VITALS: BMI 42.4
[~2019-05-18] MED LIST changes: -HEPARIN SODIUM,PORCINE 5,000 UNIT/ML 1 ML VIAL SQ ONE; -INDOCYANINE GREEN 25 MG VIAL IV STA; +KETOROLAC 30 MG/ML 1 ML VIAL IVP SCH; +LIDOCAINE 1% 20 ML VIAL (10MG/ML) FOR IV START INTRADERMA PRN; +LIDOCAINE 1%-EPI 1:100,000 20 ML VIAL SQ ONE; +MIDAZOLAM 2 MG/2 ML VIAL ONE; -MORPHINE SULFATE 4 MG/ML SYRINGE IV PRN; -ONDANSETRON 4 MG/2 ML VIAL IVP ONE; +PROPOFOL 10 MG/ML 20 ML VIAL IV ONE; +Pre Op ABX Message 1 EACH MISC MISCELLANE ONE; +SCOPOLAMINE 1.5MG/72HR PATCH TRANSDERM ONE; -ceFAZolin IN SWFI 2 GM/20 ML SYRINGE IVP ONE; +fentaNYL (PF) 50 MCG/ML 2 ML AMP ONE
--- NOTE | 2019-05-18 13:34 | P.OP ---
Date of Procedure: 05/18/19 Preoperative Diagnosis: Right carpal tunnel syndrome Postoperative Diagnosis: Right carpal tunnel syndrome Procedure(s) Performed: Right endoscopic carpal tunnel release Anesthesia: other (General + local) Surgeon: Ross Mclaen Estimated Blood Loss (ml): 1 Condition: stable Disposition: PACU Indications for Procedure: The patient is a 49-year-old female who was diagnosed with right carpal tunnel syndrome. Treatment options (and associated risks and benefits) were discussed in the office. The patient elected surgical release. In preop, additional questions were addressed and the patient wished to proceed with surgery. Consent forms were signed. The operative site was confirmed and marked. Description of Procedure: The patient was positioned supine with the right arm on a hand table. A tourniquet was applied. Anesthesia was administered uneventfully. A time-out was performed, confirming patient identifiers, the operative side, site and the procedure to be performed: all team members expressed agreement. Using aseptic technique, local anesthetic was injected into the subcutaneous tissues around the planned incision. The right upper extremity was then prepped and draped in standard, sterile fashion. The limb was exsanguinated with an Esmarch and the t ourniquet was inflated. Loupe magnification was used throughout the case for optimum visualization. A 1.5 cm transverse incision was marked proximal to the wrist flexion crease, in line with the radial border of the ring finger. The skin was sharply incised and the subcutaneous tissues were bluntly spread. The volar carpal fascia was identified and sharply incised in line with the path of the nerve. A synovial elevator was used to release adhesions on the underside of the transverse carpal ligament. The washboard effect was palpable. A dilator was inserted to sound and enlarge the carpal tunnel. The tunnel was fairly tight. The hamate hook was palpable ulnarly. The side-specific guide and camera were inserted. The transverse carpal ligament was clearly visualized above. The distal edge of the ligament was identified and palpated with a probe. A rasp was used to clear the remaining synovial adhesions. The endoscopic blade was inserted and the distal half of the ligament was sharply incised. Residual distal transverse fibers were released and then the proximal portion of the ligament was divided. Wide release of ligament was visually confirmed. The camera was removed. The v olar carpal fascia, proximal and distal to the incision, was released with scissors under direct visualization. A layer of thickened perineural tissue was identified along the nerve, causing persistent compression. A limited local neurolysis was performed, which improved both the appearance and mobility of the nerve. The tourniquet was released after 15 minutes at 250 mm Hg. Excellent hemostasis was obtained with manual pressure. The wound was thoroughly irrigated with normal saline. The incision was closed with interrupted 4-0 Nylon sutures. Additional local anesthetic with epinephrine was injected for adjunctive postoperative pain control and hemostasis. A soft, sterile dressing was applied. All sponge, needle and instrument counts were correct at the end of the case. The patient tolerated the procedure well and was transferred to recovery in stable condition.
[2019-05-18 13:36] VITALS: TEMP 97.1
[2019-05-18 14:22] VITALS: RESP 16
[2019-05-18 14:41] VITALS: BP 124/84; PULSE 72
== END | disposition home or self-care (01) ==
LOC: OR 10:58
PROVIDERS: ATTEND Orthopaedic Surgery
DX: G56.03 Carpal tunnel syndrome, bilateral upper limbs (principal); G56.21 Lesion of ulnar nerve, right upper limb; K21.9 Gastro-esophageal reflux disease without esophagitis; E66.9 Obesity, unspecified; Z79.899 Other long term (current) drug therapy; Z88.0 Allergy status to penicillin; Z88.6 Allergy status to analgesic agent; Z83.3 Family history of diabetes mellitus; Z68.41 Body mass index [BMI] 40.0-44.9, adult
CPT/HCPCS: 29848; J2250; J1100; J2405; J3010; J2704

== ENCOUNTER → 2020-02-28 | Outpatient (CLI) | payer OTHER ==
--- NOTE | 2020-02-28 12:41 | FL ---
EXAMINATION: Cervical and Thoracic Esophagram DATE OF EXAM: 02/28/2020 CLINICAL INDICATION: 50-year-old female K21.9, worsening GERD COMPARISON: 11/23/2017 Total Fluoroscopy Time: 2 minutes 3 seconds Total images: 50 FINDINGS: The swallowing mechanism is normal. There is slight thickening of the cricopharyngeus. The thoracic portion has a normal course and caliber and normal motility. The mucosa is normal and no persistent filling defect is encountered. There is a moderate sliding hiatal hernia and severe spontaneous gastroesophageal reflux to the thora cic inlet when the patient is brought supine. IMPRESSION: 1. Moderate-sized sliding hiatal hernia and severe spontaneous gastroesophageal reflux to the thoraci c inlet when the patient is brought supine. 2. Slight hypertrophy of the cricopharyngeus.
== END | disposition home or self-care (01) ==
LOC: RADUSWWP 10:55
PROVIDERS: ATTEND Surgery Plastic and Reconstructive Surgery
DX: K21.9 Gastro-esophageal reflux disease without esophagitis (principal); K44.9 Diaphragmatic hernia without obstruction or gangrene; J39.2 Other diseases of pharynx; Z88.0 Allergy status to penicillin; Z88.6 Allergy status to analgesic agent
CPT/HCPCS: 74220

== ENCOUNTER 2020-06-19 07:11 | Day surgery (SDC) | payer OTHER ==
[2020-06-17 09:55] VITALS: BMI 42.7
[~2020-06-19 07:11] MED LIST changes: -DEXAMETHASONE SOD PHOSPHATE 10 MG/ML 1 ML VIAL IV ONE; -HYDROmorphone 0.5 MG/0.5 ML SYRINGE IVP PRN; -KETOROLAC 30 MG/ML 1 ML VIAL IVP SCH; +LIDOCAINE 1% (10MG/ML) FOR IV START INTRADERMA PRN; -LIDOCAINE 1% 20 ML VIAL (10MG/ML) FOR IV START INTRADERMA PRN; -LIDOCAINE 1%-EPI 1:100,000 20 ML VIAL SQ ONE; -MIDAZOLAM 2 MG/2 ML VIAL ONE; -ONDANSETRON 4 MG/2 ML VIAL IVP PRN; -PROPOFOL 10 MG/ML 20 ML VIAL IV ONE; -Pre Op ABX Message 1 EACH MISC MISCELLANE ONE; -SCOPOLAMINE 1.5MG/72HR PATCH TRANSDERM ONE; -fentaNYL (PF) 50 MCG/ML 2 ML AMP ONE
--- NOTE | 2020-06-19 07:37 | P.GSHP ---
History of Present Illness H&P Date: 06/19/20 CHIEF COMPLAINT: GERD HISTORY OF PRESENT ILLNESS: The patient is a 50-year-old female who presents reports gastroesophageal reflux disease. Upper endoscopy was offered for further evaluation and management. PAST MEDICAL HISTORY: Please see list. PAST SURGICAL HISTORY: Please see list. MEDICATIONS: Please see list. ALLERGIES: Please see list. SOCIAL HISTORY: No illicit drug use FAMILY HISTORY: No reports of Crohn disease or ulcerative colitis. REVIEW OF ORGAN SYSTEMS: CONSTITUTIONAL: No reports of fevers or chills. GI: Denies any blood in stools or constipation. PHYSICAL EXAM: VITAL SIGNS: Stable GENERAL: Well-developed and pleasant in no acute distress. HEENT: No scleral icterus. Extraocular movements grossly intact. Moist buccal mucosa. NECK: Supple without lymphadenopathy. CHEST: Unlabored respirations. Equal bilateral excursions. CARDIOVASCULAR: Regular rate and rhythm. Distal 2+ pulses. ABDOMEN: Soft, nondistended. MUSCULOSKELETAL: No clubbing, cyanosis, or edema. ASSESSMENT: 1. Gastroesophageal reflux disease PLAN: 1. Recommend proceeding with an upper endoscopy Past Medical History Past Medical History: Asthma, GERD/Reflux, Osteoarthritis (OA) Additional Past Medical History / Comment(s): hiatal hernia, History of Any Multi-Drug Resistant Organisms: None Reported Past Surgical History: Bladder Surgery, Cholecystectomy, Hernia Repair, Orthopedic Surgery Additional Past Surgical History / Comment(s): bladder suspension with mesh, rt carpal tunnel Past Anesthesia/Blood Transfusion Reactions: Postoperative Nausea & Vomiting (PONV) Additional Past Anesthesia/Blood Transfusion Reaction / Comment(s): did well with last or with "patch behind ear" Smoking Status: Former smoker - Past Family History Father Family Medical History: Cancer Additional Family Medical History / Comment(s): stomach cancer Mother Additional Family Medical History / Comment(s): from "toxicity in blood" Medications and Allergies Home Medications Medication Instructions Recorded Confirmed Type Albuterol Inhaler (Mhu) [Ventolin 1 - 2 puff INHALATION RT-Q6H PRN 12/17/16 History Hfa Inhaler] Omeprazole 40 mg PO DAILY #90 capsule. 01/04/18 06/17/20 Rx Apple Cider Vinegar(Dose Unkno 1 tab PO DAILY 06/17/20 06/17/20 History Ascorbic Acid [Vitamin C] 500 mg PO DAILY 06/17/20 06/17/20 History Calcium.Magnesium.Zinc 1 tab PO DAILY 06/17/20 06/17/20 History Elderberry Fruit and Flower [Black 1,000 mg PO DAILY 06/17/20 06/17/20 History Elderberry 575 mg Cap] Garlic 1 each PO DAILY 06/17/20 06/17/20 History Allergies Allergy/AdvReac Type Severity Reaction Status Date / Time Penicillins Allergy Unknown Verified 06/17/20 09:47 Childhood
[2020-06-19 07:49] VITALS: RESP 16; TEMP 97.7
[2020-06-19] MEDS ORDERED: fentaNYL (PF) 50 MCG/ML 2 ML AMP ONE (07:57)
[2020-06-19] MEDS ORDERED: PROPOFOL 10 MG/ML 20 ML VIAL IV ONE (07:57)
[2020-06-19] MEDS ORDERED: LIDOCAINE 1% INJ 10MG/ML (20 ML MDV) ONE (07:57)
[2020-06-19] MEDS ORDERED: MIDAZOLAM 2 MG/2 ML VIAL ONE (07:57)
--- NOTE | 2020-06-19 08:00 | P.PCN ---
Date of Procedure: 06/19/20 Description of Procedure: PREOPERATIVE DIAGNOSIS: History of colon polyps POSTOPERATIVE DIAGNOSIS: History of colon polyps Sigmoid colon stricture OPERATION: Colonoscopy to the sigmoid colon. SURGEON: Regla Josue MD. ANESTHESIA: MAC. INDICATIONS: The patient is a 50-year-old female who presents for colonoscopy screening. Her last colonoscopy was more 5 years ago. Benefits and risks were described and informed consent was obtained. DESCRIPTION OF PROCEDURE: The patient had undergone Suprep. She had been brought into the operating room and laid in the left lateral decubitus position. After adequate intravenous sedation, the rectum was examined with 2% lidocaine jelly. No external hemo rrhoids were encountered. The rectal tone was loose. No lesions were palpated in the rectal vault. An pediatric Olympus colonoscope was advanced along the rectum to the stenosed sigmoid colon. Despite multiple maneuvers, the scope could not advance beyond 20 cm from the anal verge. As the patient posed high risk for perforation with persistence of the procedure, the procedure was discontinued. The colon was desufflated. The patient had tolerated the procedure well. Withdrawal time was over 6 minutes. FINDINGS: [place] preparation quality scale 1 (1-5) Stricture of the sigmoid colon preventing further advancement of the scope. No external prolapsed hemorrhoids. Scope advanced to sigmoid colon at 20 cm with sigmoid stricture. No arteriovenous malformations. No adenomatous polyps. No focal colitis. RECOMMENDATIONS: Completion of colonoscopy evaluation with barium enema. Plan - Discharge Summary New Discharge Prescriptions: Continue Albuterol Inhaler (Mhu) [Ventolin Hfa Inhaler (Mhu)] 1 - 2 puff INHALATION RT-Q6H PRN PRN Reason: Shortness Of Breath Omeprazole 40 mg PO DAILY #90 capsule. Garabdoulaye 1 each PO DAILY Elderberry Fruit and Flower [Black Elderberry 575 mg Cap] 1,000 mg PO DAILY Ascorbic Acid [Vitamin C] 500 mg PO DAILY Calcium.Magnesium.Zinc 1 tab PO DAILY Apple Cider Vinegar(Dose Unkno 1 tab PO DAILY Discharge Medication List Albuterol Inhaler (Mhu) [Ventolin Hfa Inhaler (Mhu)] 1 - 2 puff INHALATION RT- Q6H PRN 12/17/16 [History] Omeprazole 40 mg PO DAILY #90 capsule. 01/04/18 [Rx] Apple Cider Vinegar(Dose Unkno 1 tab PO DAILY 06/17/20 [History] Ascorbic Acid [Vitamin C] 500 mg PO DAILY 06/17/20 [History] Calcium.Magnesium.Zinc 1 tab PO DAILY 06/17/20 [History] Elderberry Fruit and Flower [Black Elderberry 575 mg Cap] 1,000 mg PO DAILY 06/17/20 [History] Garlic 1 each PO DAILY 06/17/20 [History] Follow up Appointment(s)/Referral(s): Regla Josue MD [STAFF PHYSICIAN] - 06/24/20 Patient Instructions/Handouts: *[facility] - (Anesthesia) Endoscopy Discharge Instructions, Colonoscopy (DC), Barium Enema (DC) Discharge Disposition: HOME SELF-CARE
[2020-06-19 08:33] VITALS: BP 107/74; PULSE 65
--- NOTE | 2020-06-19 08:55 | P.PCN ---
Date of Procedure: 06/19/20 Description of Procedure: PREOPERATIVE DIAGNOSIS: Gastroesophageal reflux disease. Morbid obesity. POSTOPERATIVE DIAGNOSIS: Morbid obesity. Gastritis. Gastroesophageal reflux disease with erosive esophagitis Diaphragmatic hiatal hernia OPERATION: Esophagogastroduodenoscopy with biopsies along antrum and esophagus SURGEON: Regla Josue MD ANESTHESIA: MAC. INDICATIONS: The patient is a 50-year-old female who presents with a history of reflux disease. Benefits and risks of the procedure were described. Informed consent was obtained. DESCRIPTION: The patient was brought into the endoscopy suite and laid in the left lateral decubitus position. An Olympus gastroscope was passed along the posterior oropharynx down to the distal esophagus where the squamocolumnar junction was encountered at 31 cm from the incisors. The stomach was entered and no bile reflux was found. Additional findings are listed below. Biopsies with cold forceps were obtained of the antrum. The first through third portion of the duodenum was examined and unremarkable. Retroflexion of the scope confirmed Hill grade 4 lower esophageal valve. The squamocolumnar junction demonstrated LA grade C erosive esophagitis. The stomach was desufflated. The patient tolerated the procedure well. FINDINGS: Squamocolumnar junction 31 cm from the incisors. Diaphragmatic hiatus at 39 cm. Hiatal hernia, 8 cm Hill grade 4 lower esophageal valve. LA grade C erosive esophagitis with biopsies obtained No active duodenitis. Chronic gastritis with biopsies obtained RECOMMENDATIONS: Upper endoscopy as needed Recommend manometry Recommend barium swallow study Recommend antireflux operation Plan - Discharge Summary New Discharge Prescriptions: New Omeprazole [PriLOSEC] 40 mg PO DAILY #90 cap Continue Albuterol Inhaler (Mhu) [Ventolin Hfa Inhaler (Mhu)] 1 - 2 puff INHALATION RT-Q6H PRN PRN Reason: Shortness Of Breath Omeprazole 40 mg PO DAILY #90 capsule.dr Rojas 1 each PO DAILY Elderberry Fruit and Flower [Black Elderberry 575 mg Cap] 1,000 mg PO DAILY Ascorbic Acid [Vitamin C] 500 mg PO DAILY Calcium.Magnesium.Zinc 1 tab PO DAILY Apple Cider Vinegar(Dose Unkno 1 tab PO DAILY Discharge Medication List Albuterol Inhaler (Mhu) [Ventolin Hfa Inhaler (Mhu)] 1 - 2 puff INHALATION RT- Q6H PRN 09/22/17 [History] Omeprazole 40 mg PO DAILY #90 capsule. 01/04/18 [Rx] Apple Cider Vinegar(Dose Unkno 1 tab PO DAILY 06/17/20 [History] Ascorbic Acid [Vitamin C] 500 mg PO DAILY 06/17/20 [History] Calcium.Magnesium.Zinc 1 tab PO DAILY 06/17/20 [History] Elderberry Fruit and Flower [Black Elderberry 575 mg Cap] 1,000 mg PO DAILY 06/17/20 [History] Garlic 1 each PO DAILY 06/17/20 [History] Omeprazole [PriLOSEC] 40 mg PO DAILY #90 cap 06/19/20 [Rx] Follow up Appointment(s)/Referral(s): Regla Josue MD [STAFF PHYSICIAN] - 06/24/20 Patient Instructions/Handouts: *[facility] - (Anesthesia) Endoscopy Discharge Instructions, Hiatal Hernia (DC), Esophagitis (DC) Discharge Disposition: HOME SELF-CARE
== END 2020-06-19 09:05 | disposition home or self-care (01) ==
LOC: ORWHC2ENDO 07:11
PROVIDERS: ATTEND Surgery Plastic and Reconstructive Surgery
DX: K29.50 Unspecified chronic gastritis without bleeding (principal); K20.0 Eosinophilic esophagitis; K44.9 Diaphragmatic hernia without obstruction or gangrene; J45.909 Unspecified asthma, uncomplicated; M19.90 Unspecified osteoarthritis, unspecified site; E66.01 Morbid (severe) obesity due to excess calories; Z68.41 Body mass index [BMI] 40.0-44.9, adult; Z90.49 Acquired absence of other specified parts of digestive tract; Z98.890 Other specified postprocedural states; Z87.891 Personal history of nicotine dependence; Z80.0 Family history of malignant neoplasm of digestive organs; Z83.2 Family history of diseases of the blood and blood-forming organs and certain disorders involving the immune mechanism; Z79.899 Other long term (current) drug therapy; Z88.0 Allergy status to penicillin
CPT/HCPCS: 88305; 43239; J2250; J2001; J3010; J2704

== ENCOUNTER → 2020-07-24 | Outpatient (CLI) | payer OTHER ==
--- NOTE | 2020-07-24 11:24 | FL ---
EXAMINATION TYPE: FL barium swallow DATE OF EXAM: 07/24/2020 CLINICAL HISTORY: Dysphasia TECHNIQUE: A double contrast esophagram is performed utilizing air and barium. A total of 37 second s of fluoroscopic time was utilized during procedure. COMPARISON: None FINDINGS: The esophagus shows normal motility and emptying into the stomach. There is irregularity al elsy the distal esophageal wall. Small hiatal hernia noted. Mild gastroesophageal reflux noted. IMPRESSION: 1. Small hiatal hernia with mild gastroesophageal reflux. Mild irregularity of the distal wall of the esophagus which direct visualization is recommended to assess for mucosal lesion or Thibodeaux's esopha gitis.
== END | disposition home or self-care (01) ==
LOC: RADUSWWP 10:05
PROVIDERS: ATTEND Surgery Plastic and Reconstructive Surgery
DX: K21.9 Gastro-esophageal reflux disease without esophagitis (principal); K44.9 Diaphragmatic hernia without obstruction or gangrene
CPT/HCPCS: 74220

== ENCOUNTER → 2020-07-28 | Outpatient (CLI) | payer OTHER | END | disposition home or self-care (01) | LOC: LABWHC1 11:03 | PROVIDERS: ATTEND Surgery Plastic and Reconstructive Surgery | DX: I11.9 Hypertensive heart disease without heart failure (principal) | CPT/HCPCS: 36415; 93005 ==

== ENCOUNTER 2021-02-13 10:23 | Observation (INO) | payer OTHER ==
[~2021-02-13 10:23] MED LIST changes: +ACETAMINOPHEN TAB 500 MG TAB PO STA; +CHLORHEXIDINE GLUCONATE 15 ML CUP MUCOUS MEM PRN; +DEXAMETHASONE SOD PHOSPHATE 4 MG/ML 1 ML VIAL IV ONE; +GABAPENTIN 300 MG CAP PO STA; +HEPARIN SODIUM,PORCINE/PF 5,000 UNIT/0.5 ML SYRINGE SQ PRN; +HYDROmorphone 0.5 MG/0.5 ML SYRINGE IVP PRN; -LIDOCAINE 1% (10MG/ML) FOR IV START INTRADERMA PRN; +MIDAZOLAM 2 MG/2 ML VIAL IV PRN; +ONDANSETRON 4 MG/2 ML VIAL IVP ONE; +PANTOPRAZOLE 40 MG/10 ML VIAL IVP PRN; +SCOPOLAMINE 1.5MG/72HR PATCH TRANSDERM ONE; +ceFAZolin 3 GM in SODIUM CHLORIDE 0.9% 100 ML IVPB PRN
--- NOTE | 2021-02-13 10:42 | P.GSHP ---
History of Present Illness H&P Date: 02/13/21 CHIEF COMPLAINT: Paraesophageal hiatal hernia with gastroesophageal reflux disease. HISTORY OF PRESENT ILLNESS: The patient is a 50-year-old female who presents with paraesophageal hiatal hernia. She has completed upper endoscopy workup. Now she presents for surgical intervention. PAST MEDICAL HISTORY: Please see list. PAST SURGICAL HISTORY: Please see list. MEDICATIONS: Please see list. ALLERGIES: Please see list. SOCIAL HISTORY: No illicit drug use FAMILY HISTORY: No reports of Crohn disease or ulcerative colitis. REVIEW OF ORGAN SYSTEMS: CONSTITUTIONAL: No reports of fevers or chills. GI: Denies any blood in stools or constipation. PHYSICAL EXAM: VITAL SIGNS: Stable GENERAL: Well-developed pleasant and in no acute distress. HEENT: No scleral icterus. Extraocular movements grossly intact. Moist buccal mucosa. NECK: Supple without lymphadenopathy. CHEST: Unlabored respirations. Equal bilateral excursions. CARDIOVASCULAR: Regular rate and rhythm. Distal 2+ pulses. ABDOMEN: Soft, nondistended. No peritoneal signs. MUSCULOSKELETAL: No clubbing, cyanosis, or edema. SKIN: Well-perfused. Good skin turgor. ASSESSMENT: 1. Diaphragmatic paraesophageal hiatal hernia with severe gastroesophageal reflux disease. PLAN: 1. Recommend proceeding with a robotic paraesophageal hiatal hernia with possible mesh. 2. Benefits and risks of surgical intervention was discussed including possibility of open technique. 3. Inpatient hospitalization recommended of 2 nights 4. DVT prophylaxis. 5. Antibiotic prophylaxis. 6. She has also completed a very low caloric high-protein diet to address underlying hepatomegaly. Past Medical History Past Medical History: Asthma, GERD/Reflux, Osteoarthritis (OA) Additional Past Medical History / Comment(s): Hiatal hernia. History of Any Multi-Drug Resistant Organisms: None Reported Past Surgical History: Bladder Surgery, Cholecystectomy, Hernia Repair, Orthopedic Surgery Additional Past Surgical History / Comment(s): Bladder suspension with mesh, right carpal tunnel surgery. Past Anesthesia/Blood Transfusion Reactions: No Reported Reaction, Postoperative Nausea & Vomiting (PONV) Additional Past Anesthesia/Blood Transfusion Reaction / Comment(s): "Did well with patch behind ear." Past Psychological History: No Psychological Hx Reported Smoking Status: Former smoker Past Alcohol Use History: None Reported Additional Past Alcohol Use History / Comment(s): Smoked for couple years in high school. Past Drug Use History: None Reported - Past Family History Father Family Medical History: Cancer Additional Family Medical History / Comment(s): Stomach cancer. Mother Additional Family Medical History / Comment(s): from "toxicity in blood" Medications and Allergies Home Medications Medication Instructions Recorded Confirmed Type Albuterol Inhaler (Mhu) [Ventolin 1 - 2 puff INHALATION RT-Q6H PRN 12/17/16 02/13/21 History Hfa Inhaler (Mhu)] Apple Cider Vinegar(Dose Unkno 1 tab PO DAILY 06/17/20 02/13/21 History Ascorbic Acid [Vitamin C] 500 mg PO DAILY 06/17/20 02/13/21 History Calcium.Magnesium.Zinc 1 tab PO DAILY 06/17/20 02/13/21 History Elderberry Fruit and Flower [Black 1,000 mg PO DAILY 06/17/20 02/13/21 History Elderberry 575 mg Cap] Garlic 1 each PO DAILY 06/17/20 02/13/21 History Omeprazole [PriLOSEC] 40 mg PO HS 02/11/21 02/13/21 History Allergies Allergy/AdvReac Type Severity Reaction Status Date / Time Penicillins Allergy Unknown Verified 02/13/21 10:38 Childhood
[2021-02-13] MEDS ORDERED: LIDOCAINE 1% (10MG/ML) FOR IV START INTRADERMA ONE (10:59)
[2021-02-13] MEDS: MELOXICAM 7.5 MG TAB PO SCH ×2 (11:09→16:24)
[2021-02-13 11:48] LABS: Anisocytosis Slight; Basophils % (A) 0 %; Eosinophils # (A) 0.2 k/uL (0-0.7); Eosinophils % (A) 3 %; HGB 13.2 gm/dL (11.4-16.0); Lymphocytes # (A) 1.4 k/uL (1.0-4.8); Lymphocytes % (A) 25 %; MCH 23.1 pg (25.0-35.0); MCHC 33.1 g/dL (31.0-37.0); MCV 69.8 fL (80.0-100.0); Mean Platelet Volume 7.4; Microcytosis Marked; Monocytes # (A) 0.2 k/uL (0-1.0); Monocytes % (A) 3 %; Neutrophils # (A) 3.7 k/uL (1.3-7.7); Neutrophils % (A) 66 %; Platelet Count 269 k/uL (150-450); RBC 5.73 m/uL (3.80-5.40); RDW 16.6 % (11.5-15.5); WBC 5.7 k/uL (3.8-10.6)
[2021-02-13 11:57] LABS: ALT 23 U/L (4-34); AST 25 U/L (14-36); African American GFR (CKD) >90 (>60 ml/min/1.73 sqM); Albumin 4.7 g/dL (3.5-5.0); Alkaline Phosphatase 85 U/L (38-126); Anion Gap 9 mmol/L; Blood Urea Nitrogen 18 mg/dL (7-17); Calcium 10.2 mg/dL (8.4-10.2); Carbon Dioxide 25 mmol/L (22-30); Chloride 104 mmol/L (98-107); Glucose 115 mg/dL (74-99); Non-African American GFR(CKD) 82 (>60 ml/min/1.73 sqM); Potassium 4.2 mmol/L (3.5-5.1); Sodium 138 mmol/L (137-145); Total Bilirubin 0.4 mg/dL (0.2-1.3)
[2021-02-13] MEDS ORDERED: ROCURONIUM 10 MG/ML (5 ML VIAL) IV ONE (12:26)
[2021-02-13] MEDS ORDERED: HYDROmorphone (PF) 1 MG/ML ONE (12:26)
[2021-02-13] MEDS ORDERED: LIDOCAINE 1% INJ 10MG/ML (20 ML MDV) ONE (12:26)
[2021-02-13] MEDS ORDERED: MIDAZOLAM 2 MG/2 ML VIAL ONE (12:26)
[2021-02-13] MEDS ORDERED: fentaNYL (PF) 50 MCG/ML 2 ML AMP ONE (12:26)
[2021-02-13] MEDS ORDERED: SUCCINYLCHOLINE CHLORIDE VIAL 200 MG/10 ML VIAL IV ONE (12:26)
[2021-02-13] MEDS ORDERED: NEOSTIGMINE 1 MG/ML 10 ML VIAL ONE (12:26)
[2021-02-13] MEDS ORDERED: PHENYLEPHRINE-0.9% NACL SYG 1,000 MCG/10 ML SYRINGE ONE (12:26)
[2021-02-13] MEDS ORDERED: GLYCOPYRROLATE 0.2 MG/ML 2 ML VIAL ONE (12:26)
[2021-02-13] MEDS ORDERED: PROPOFOL 10 MG/ML 20 ML VIAL IV ONE (12:26)
[2021-02-13] MEDS ORDERED: BUPIVACAIN-EPI 0.25%-1:200,000 30 ML VIAL SQ ONE (13:09)
[2021-02-13] MEDS ORDERED: LACTATED RINGERS 1,000 ML IV ONE (13:39)
[2021-02-13] MEDS ORDERED: diphenhydrAMINE 50 MG/ML 1 ML VIAL IVP PRN (14:30)
[2021-02-13] MEDS ORDERED: HYDROmorphone 1 MG/ML 1 ML SYRINGE IVP PRN (14:30)
[2021-02-13] MEDS ORDERED: NALOXONE 0.4 MG/ML 1 ML VIAL IV PRN (14:30)
[2021-02-13] MEDS ORDERED: DEXAMETHASONE SOD PHOSPHATE 10 MG/ML 1 ML VIAL IVP PRN (14:33)
--- NOTE | 2021-02-13 14:42 | P.OP ---
Date of Procedure: 02/13/21 Description of Procedure: DESCRIPTION OF PROCEDURE(S): SURGEON: MARIBELL FUENTES MD PREOPERATIVE DIAGNOSES: 1. Gastroesophageal reflux disease, with erosive esophagitis 2. Paraesophageal hiatal hernia, midline 3. Morbid obesity due to excess calories, BMI of 43.4 4. Asthma 5. Esophageal dysmotility POSTOPERATIVE DIAGNOSES: 1. Gastroesophageal reflux disease, with erosive esophagitis 2. Paraesophageal hiatal hernia, midline, recurrent with incarceration, 4 x 7 cm, type III 3. Morbid obesity due to excess calories, BMI of 43.4 4. Asthma 5. Esophageal dysmotility 6. Hepatomegaly. OPERATION: 1. Robotic-assisted da Oneil Xi laparoscopic reduction and repair of incarcerated paraesophageal hiatal hernia, 7 x 4 cm, with [place] Biopatch A 8 x 8 cm. 2. Intraoperative esophagogastroscopy 3. Placement of 58-Romansh bougie ANESTHESIA: General with local anesthetic. ESTIMATED BLOOD LOSS: 5 mL Pathology: None COMPLICATIONS: None. FINDINGS: 1. Incarcerated upper pole of the stomach within the mediastinum with moderate dissection performed with incision of mediastinal hernia sac, type III paraesophageal hiatal hernia 2. 7 cm paraesophageal incarcerated diaphragmatic hiatal hernia with moderate dissection into the mediastinum 3. [place] Biopatch A onlay mesh placed. 4. GE junction at 39 cm from the incisors 5. Intra-abdominal esophageal length over 3 cm obtained INDICATIONS: The patient is a 50-year-old female who gastroesophageal reflux recalcitrant to medical therapy with a symptomatic diaphragmatic hiatal hernia. Preoperative workup including upper endoscopy demonstrated hiatal hernia with erosive esophagitis. Given the severity of her symptoms, she had elected for surgical intervention. Benefits and risks including bleeding, infection, recurrence, dysphagia, injury to the lung, need for further surgery was described at length. Informed consent was obtained. DESCRIPTION: The patient was brought into the operating room and placed in supine position. Preoperatively she had received heparin subcutaneously for DVT prophylaxis. After general induction, the abdomen was prepped and draped in standard sterile fashion. The patient had previously voided prior to coming to the operating room. Ioban draping was placed along the abdomen. A timeout protocol was confirmed with the surgical team, for which the patient's name, procedure to be performed including DVT prophylaxis with bilateral SCDs, and preoperative antibiotics were also confirmed. A robotic da Oneil Xi system was prepped and primed. At 12 cm from the xiphoid to just below the umbilicus, proposed port sites were marked with indelible marker along the left axillary line, left mid-clavicular line with each ports were marked 10 cm from each other. A 5 mm 0 degrees laparoscopic trocar entry was performed along the left upper quadrant. The abdomen was insufflated to 15 mmHg pressure was tolerated well. Diagnostic laparoscopy demonstrated no injury to bowel, viscera. Next, one 8 mm robotic port was placed along the right upper abdomen. An 8-mm port was were placed along the left lateral abdominal wall. The camera 8-mm port was maintained along the epigastrium. Another 12 mm port was placed along the left upper abdominal wall after exchanging the 5 mm port. Please note that the ports were placed at least 20 cm away from the target anatomy. Care was taken to check that each robotic arm were safely away from collision with the bed or the patient. The patient was repositioned in reverse Trendelenburg position at 21-degrees after lowering the bed. The robot was docked above the left side of the patient. Using a grasper for arm 3, a grasper for arm 1, including vessel sealer for arm 2, the robotic system was docked and primed as described. Instruments were interchanged by the account management assistant. I had sat at the console. Initial attention was brought to hiatus. Circumferentially the dissection at the hiatus was performed using vessel sealer including blunt dissection. The gastrohepatic ligament was cleaved using a vessel sealer. Next, the phre noesophageal ligament was mobilized and the distal esophagus was mobilized circumferentially. An incarcerated hernia sac was found into the mediastinum. As a result, deep dissection well into the mediastinum was performed to the mid esophagus consistent with a type III hiatal hernia. The left and right crura was identified. Significant mobilization of the distal to mid esophagus into the mediastinum was performed. Circumferentially, the hernia sac was incised and brought into the abdominal cavity. Care was taken to avoid any gastrotomy. The measured defect was measured with a ruler consistent with 7 cm axial length and 4 cm in width. After extensive dissection, the distal esophagus at least 3 cm was brought into the abdominal cavity. Once the hiatus and crura was dissected, non-absorbable 2-0 VLOC suture was placed as a running suture to re-approximate the diaphragmatic hiatus posteriorly. To buttress the repair, a [place] Biopatch A was prepared along the back table and cut in a half styles-hole fashion as to reinforce the repair as an underlay. The mesh was resized posteriorly placed along the crural repair and tagged using non-absorbable 2-0 VLOC. I went to the head of the bed to place a 58-Romansh bougie into the esophagus to address esophageal dysmotility. An intraoperative esophagogastroduodenoscopy was performed. An Olympus gastroscope was passed through posterior oropharynx, where the squamocolumnar junction was confirmed at 39 cm from the incisors. The hiatus repair was confirmed from the incisors. The stomach was entered. The stomach had been desufflated. No evidence of leaks were found or mucosal defects of the esophagus or stomach. This concluded the endoscopic portion of the case. The robot was undocked from the patient. I re-scrubbed into the case. All instruments and pneumoperitoneum were evacuated from the abdominal cavity. The incisions were cleansed with dilute hydrogen peroxide with saline solution. Incisions were reapproximated using 4-0 Monocryl in an interrupted subcuticular fashion. The 12-mm port site fascial defect was less than 8 mm in size. Exofin was applied to the skin. Local anesthetic was infiltrated in all wounds for postop analgesia. Multiple intra-abdominal films were obtained. At the end of the procedure, needle, sponge, and instrument count was verified correct by the surgical specialist. The patient had tolerated the procedure well and was taken to the postanesthesia unit in stable condition. Intraoperative films were reviewed with the patient's family who were pleased with the level of care.
[2021-02-13] MEDS: ALBUTEROL NEBULIZED 2.5 MG/3 ML INHALATION SCH ×2 (15:51→19:51)
[2021-02-13] MEDS: HYOSCYAMINE ORAL DROPS 1.875 MG/15 ML BOTTLE PO SCH (18:20)
[2021-02-13] MEDS: SIMETHICONE 40 MG/0.6 ML DROPS 2,000 MG/30 ML BOTTLE PO SCH (18:22)
[2021-02-13] MEDS: METOCLOPRAMIDE 5 MG/ML 2 ML VIAL IVP SCH ×2 (18:26→23:57)
[2021-02-13] MEDS: DEXAMETHASONE SOD PHOSPHATE 4 MG/ML 1 ML VIAL IVP SCH ×2 (18:26→23:57)
[2021-02-13] MEDS: ONDANSETRON 4 MG/2 ML VIAL IVP SCH ×2 (18:28→23:57)
[2021-02-13] MEDS: KETOROLAC 30 MG/ML 1 ML VIAL IVP SCH ×2 (18:32→23:57)
[2021-02-13] MEDS: ACETAMINOPHEN IV (For NPO) 1,000 MG in EMPTY BAG 1 BAG IVPB SCH ×2 (18:35→23:55)
[2021-02-13] MEDS ORDERED: ceFAZolin 3 GM in SODIUM CHLORIDE 0.9% 100 ML IVPB SCH (20:00)
[2021-02-13] MEDS: 0.9% NACL WITH KCL 20 MEQ/L 1,000 ML IV SCH (21:50)
[2021-02-14] MEDS: HYOSCYAMINE ORAL DROPS 1.875 MG/15 ML BOTTLE PO SCH ×2 (00:13→06:02)
[2021-02-14] MEDS: SIMETHICONE 40 MG/0.6 ML DROPS 2,000 MG/30 ML BOTTLE PO SCH ×2 (00:15→06:00)
[2021-02-14] MEDS: 0.9% NACL WITH KCL 20 MEQ/L 1,000 ML IV SCH ×2 (00:23→06:09)
[2021-02-14 02:27] VITALS: RESP 18
[2021-02-14] MEDS: DEXAMETHASONE SOD PHOSPHATE 4 MG/ML 1 ML VIAL IVP SCH (06:03)
[2021-02-14] MEDS: METOCLOPRAMIDE 5 MG/ML 2 ML VIAL IVP SCH (06:04)
[2021-02-14] MEDS: KETOROLAC 30 MG/ML 1 ML VIAL IVP SCH (06:06)
[2021-02-14] MEDS: ACETAMINOPHEN IV (For NPO) 1,000 MG in EMPTY BAG 1 BAG IVPB SCH (06:11)
[2021-02-14] MEDS: ONDANSETRON 4 MG/2 ML VIAL IVP SCH (06:13)
[2021-02-14 06:45] LABS: Anisocytosis Slight; Basophils % (A) 0 %; Eosinophils % (A) 0 %; HCT 36.7 % (34.0-46.0); HGB 11.5 gm/dL (11.4-16.0); Hypochromasia Slight; Lymphocytes # (A) 0.6 k/uL (1.0-4.8); Lymphocytes % (A) 5 %; MCH 22.8 pg (25.0-35.0); MCHC 31.4 g/dL (31.0-37.0); MCV 72.4 fL (80.0-100.0); Mean Platelet Volume 7.2; Microcytosis Moderate; Monocytes # (A) 0.2 k/uL (0-1.0); Monocytes % (A) 2 %; Neutrophils # (A) 12.5 k/uL (1.3-7.7); Neutrophils % (A) 93 %; Platelet Count 242 k/uL (150-450); RBC 5.07 m/uL (3.80-5.40); RDW 16.4 % (11.5-15.5); WBC 13.4 k/uL (3.8-10.6)
[2021-02-14 06:56] LABS: African American GFR (CKD) >90 (>60 ml/min/1.73 sqM); Anion Gap 7 mmol/L; Blood Urea Nitrogen 15 mg/dL (7-17); Calcium 9.1 mg/dL (8.4-10.2); Carbon Dioxide 22 mmol/L (22-30); Chloride 108 mmol/L (98-107); Magnesium 1.7 mg/dL (1.6-2.3); Non-African American GFR(CKD) >90 (>60 ml/min/1.73 sqM); Phosphorus 3.1 mg/dL (2.5-4.5); Potassium 4.3 mmol/L (3.5-5.1); Sodium 137 mmol/L (137-145)
--- NOTE | 2021-02-14 07:47 | FL ---
EXAMINATION TYPE: FL esophagus cervic/pharynx DATE OF EXAM: 02/14/2021 HISTORY: 42 year-old female rule out leak/obstruction, status post Trent fundoplication. COMPARISON: 07/24/2020 TECHNIQUE: A single contrast esophagram is performed utilizing 50 mL Isovue-370 contrast material. A total of 1 minute 34 seconds of fluoroscopic time was utilized during procedure and 18 images obtai geo. FINDINGS: The patient swallowed oral contrast without difficulty or delay. There is normal course and caliber o f the thoracic esophagus. There is delay in clearance of contrast from the distal esophagus with a gradual intermittent passage across the GE junction with postsurgical change of Trent fundoplication. Further end of the study, the intermittent passage becomes more frequent. There is no extravasation of contrast to suggest leak. Traced post surgical free air below the right hemidiaphragm. There is some patchy retrocardiac opacity, probable atelectasis. IMPRESSION: 1. Mild relative delay/obstruction at the GE junction status post Trent fundoplication. Likely on th e basis of residual postoperative edema. 2. No evidence for leak. 3. Trace post surgical free air on the right. Some patchy retrocardiac opacity at the left base, like ly atelectasis.
[2021-02-14] MEDS ORDERED: 0.9% NACL WITH KCL 20 MEQ/L 1,000 ML IV SCH (08:00)
[2021-02-14 08:22] VITALS: BP 126/74; PULSE 60; TEMP 97.6
[2021-02-14] MEDS: ALBUTEROL NEBULIZED 2.5 MG/3 ML INHALATION SCH ×2 (08:43→11:41)
[2021-02-14] MEDS ORDERED: PANTOPRAZOLE 40 MG/10 ML VIAL IV SCH (09:00)
[2021-02-14] MEDS ORDERED: ENOXAPARIN 40 MG/0.4 ML SYRINGE SQ SCH (09:00)
[2021-02-14] MEDS: MELOXICAM 7.5 MG TAB PO SCH (09:54)
[2021-02-14 10:00] VITALS: BMI 43.2
--- NOTE | 2021-02-14 11:28 | P.PN ---
Progress Note - Text Progress Note Date: 02/14/21 Patient feels well. She denies a significant abdominal pain. On exam vessels are stable. Abdomen soft. Patiently discharged home today she'll follow-up with Dr. Grey next week.
[2021-02-15] MEDS ORDERED: bisacodyL 5 MG TABLET.DR PO PRN (08:00)
== END 2021-02-14 12:19 | disposition home or self-care (01) ==
LOC: OR 10:23 → 6PED 14:27 → OR 21:08
PROVIDERS: ADMIT Surgery Plastic and Reconstructive Surgery; ATTEND Surgery Plastic and Reconstructive Surgery
DX: K44.0 Diaphragmatic hernia with obstruction, without gangrene (principal); K22.4 Dyskinesia of esophagus; K22.10 Ulcer of esophagus without bleeding; K21.00 Gastro-esophageal reflux disease with esophagitis, without bleeding; E66.01 Morbid (severe) obesity due to excess calories; Z68.41 Body mass index [BMI] 40.0-44.9, adult; R16.0 Hepatomegaly, not elsewhere classified; J45.909 Unspecified asthma, uncomplicated; M19.90 Unspecified osteoarthritis, unspecified site; Z90.49 Acquired absence of other specified parts of digestive tract; Z87.891 Personal history of nicotine dependence; Z88.0 Allergy status to penicillin; Z79.899 Other long term (current) drug therapy; Z80.0 Family history of malignant neoplasm of digestive organs
CPT/HCPCS: 43282; S2900; 74210; 80051; 80053; 82310; 82565; 83735; 84100; 84520; 85025

== ENCOUNTER → 2021-12-29 | Outpatient (CLI) | payer OTHER ==
--- NOTE | 2021-12-30 09:56 | BD ---
EXAMINATION TYPE: Axial Bone Density DATE OF EXAM: 12/29/2021 COMPARISON: NONE CLINICAL HISTORY: 51 years year old Female. ICD-10 CODE: N95.1 MENOPAUSAL STATE Height: 66 Weight: 280 FRAX RISK QUESTIONS: Alcohol (3 or more units per day): NO Family History (Parent hip fracture): NO Glucocorticoids (More than 3mos): NO History of Fracture in Adulthood: NO Secondary Osteoporosis: 1. Type 1 Diabetes: NO 2. Hyperthyroidism: NO 3. Menopause before 45: NO 4. Malnutrition: NO 5. Chronic liver disease: NO Rheumatoid Arthritis: NO Current Tobacco Use: NO RISK FACTORS HISTORY OF: Hip Fracture (Right/Left): NO Spine Fracture: NO History of Wrist Fracture: NO Surgery to Spine/Hip(right/left)/Wrist (right/left): NO Family History of Osteoporosis: MATERNAL GRANDMOTHER, PATERNAL GRANDMOTHER Active: YES Diet low in dairy products/other sources of calcium: YES Postmenopausal woman: YES Take estrogen and/or progesterone medications: NO Lost more than 2 inches in height since high school: NO Frequent falls: NO Poor Health: NO Hyperparathyroidism: NO Adrenal Insufficiency: NO MEDICATIONS: Prednisone or other steroids: NO Thyroid Medications: NO Osteoporosis Medications: NO Additional Medications: VIT D, CALCIUM, MULTI VIT., EXAM MEASUREMENTS: Bone mineral densitometry was performed using the [employer] System. Bone mineral density as measured about the Lumbar spine is: ----- L1-L4(G/cm2): 1.273 T Score Values are as follows: ----- L1: 1.4 ----- L2: 1.2 ----- L3: 0.6 ----- L4: 0.0 ----- L1-L4: 0.8 BASELINE STUDY Bone mineral density about the R hip (g/cm2): 1.061 Bone mineral density about the L hip (g/cm2): 1.073 T Score values are as follows: -----R Neck: 0.4 -----L Neck: 0.3 -----R Total: 2.0 -----L Total: 2.1 BASELINE STUDY FRAX%s: The graph provided illustrates a 2.9%chance of a major osteoporotic fx and a 0.0chance for th e hips probability of a fx in 10 years time. IMPRESSION: Normal (Values between +1 and -1 indicate normal bone mass). Consider repeating this study in 5 year s or sooner if there is some new clinical indication. NOTE: T-SCORE=SD OF THE YOUNG ADULT MEAN.
== END | disposition home or self-care (01) ==
LOC: RADBDWWP 15:26
PROVIDERS: ATTEND Obstetrics & Gynecology
DX: N95.1 Menopausal and female climacteric states (principal)
CPT/HCPCS: 77080

== ENCOUNTER → 2022-04-12 | Outpatient (CLI) | payer OTHER ==
--- NOTE | 2022-04-13 20:44 | MM ---
Reason for Exam: Screening (asymptomatic). Last mammogram was performed 5 year(s) and 11 month(s) ago. Patient History: Menarche at age 16. First Full-Term at age 23. Postmenopausal. Last menstrual period: Risk Values: Roxie 5 year model risk: 0.8%. NCI Lifetime model risk: 7.4%. Prior Study Comparison: 07/23/2013 Bilateral Screening Mammogram, [facility]. 05/24/2016 Bilateral Screening Mammogram, [facility]. Tissue Density: There are scattered fibroglandular densities. Findings: Analyzed By CAD. There is no suspicious group of microcalcifications or new suspicious mass in either breast. Overall Assessment: Negative, BI-RAD 1 Management: Screening Mammogram of both breasts in 1 year. 1. Patient should continue monthly self breast exams. 2. A clinical breast exam by your physician is recommended on an annual basis. 3. This exam should not preclude additional follow-up of suspicious palpable abnormalities. Electronically signed and approved by: Ramo Jordan M.D. Radiologist
== END | disposition home or self-care (01) ==
LOC: RADMAMWWP 15:14
PROVIDERS: ATTEND Family Medicine
DX: Z12.31 Encounter for screening mammogram for malignant neoplasm of breast (principal); Z78.0 Asymptomatic menopausal state
CPT/HCPCS: 77067

== ENCOUNTER → 2022-06-28 | Outpatient (CLI) | payer OTHER ==
--- NOTE | 2022-06-30 09:59 | FL ---
EXAMINATION TYPE: FL barium swallow DATE OF EXAM: 06/28/2022 COMPARISON: 11/23/2017 HISTORY: Dysphasia pain mid abdomen coughing when eating. History of hiatal hernia surgery TECHNIQUE: A single contrast UGI study is performed. FINDINGS: Esophagus dialysis normal caliber and has normal contour to the gastroesophageal junction. Gastroesop hageal junction has some mild narrowing. Initially, No significant hesitancy passing through this reg ion is evident. Some hesitancy was observed later during the examination. Persistent stenosis however is not evident. There is some mild patulous appearance of the distal esophagus. There was reflux evident with contrast within the esophagus during the exam. Fluoroscopy time: 53 seconds. DAP: 3527.43 Images: 161 IMPRESSIONS: 1. Gastroesophageal reflux was demonstrated. 2. Some mild hesitancy without stenosis at the gastroesophageal junction.
== END | disposition home or self-care (01) ==
LOC: RADUSWWP 10:53
PROVIDERS: ATTEND Surgery Plastic and Reconstructive Surgery
DX: K21.9 Gastro-esophageal reflux disease without esophagitis (principal); R13.10 Dysphagia, unspecified
CPT/HCPCS: 74220

== ENCOUNTER 2022-08-25 07:12 | Day surgery (SDC) | payer OTHER ==
[2022-08-20 13:04] VITALS: BMI 41.9
[~2022-08-25 07:12] MED LIST changes: -ACETAMINOPHEN TAB 500 MG TAB PO STA; -CHLORHEXIDINE GLUCONATE 15 ML CUP MUCOUS MEM PRN; -DEXAMETHASONE SOD PHOSPHATE 4 MG/ML 1 ML VIAL IV ONE; -GABAPENTIN 300 MG CAP PO STA; -HEPARIN SODIUM,PORCINE/PF 5,000 UNIT/0.5 ML SYRINGE SQ PRN; -HYDROmorphone 0.5 MG/0.5 ML SYRINGE IVP PRN; +LIDOCAINE 1% (10MG/ML) FOR IV START INTRADERMA PRN; -MIDAZOLAM 2 MG/2 ML VIAL IV PRN; -ONDANSETRON 4 MG/2 ML VIAL IVP ONE; -PANTOPRAZOLE 40 MG/10 ML VIAL IVP PRN; -SCOPOLAMINE 1.5MG/72HR PATCH TRANSDERM ONE; -ceFAZolin 3 GM in SODIUM CHLORIDE 0.9% 100 ML IVPB PRN
[2022-08-25 07:39] VITALS: RESP 16; TEMP 97.2
--- NOTE | 2022-08-25 07:59 | P.GSHP ---
History of Present Illness H&P Date: 08/25/22 CHIEF COMPLAINT: GERD HISTORY OF PRESENT ILLNESS: The patient is a 52-year-old female who presents reports gastroesophageal reflux disease. Upper endoscopy was offered for further evaluation and management. PAST MEDICAL HISTORY: Please see list. PAST SURGICAL HISTORY: Please see list. MEDICATIONS: Please see list. ALLERGIES: Please see list. SOCIAL HISTORY: No illicit drug use FAMILY HISTORY: No reports of Crohn disease or ulcerative colitis. REVIEW OF ORGAN SYSTEMS: CONSTITUTIONAL: No reports of fevers or chills. GI: Denies any blood in stools or constipation. PHYSICAL EXAM: VITAL SIGNS: Stable GENERAL: Well-developed and pleasant in no acute distress. HEENT: No scleral icterus. Extraocular movements grossly intact. Moist buccal mucosa. NECK: Supple without lymphadenopathy. CHEST: Unlabored respirations. Equal bilateral excursions. CARDIOVASCULAR: Regular rate and rhythm. Distal 2+ pulses. ABDOMEN: Soft, nondistended. MUSCULOSKELETAL: No clubbing, cyanosis, or edema. ASSESSMENT: 1. Gastroesophageal reflux disease PLAN: 1. Recommend proceeding with an upper endoscopy Past Medical History Past Medical History: Asthma, GERD/Reflux, Osteoarthritis (OA) Additional Past Medical History / Comment(s): Hiatal hernia. History of Any Multi-Drug Resistant Organisms: None Reported Past Surgical History: Bladder Surgery, Cholecystectomy, Hernia Repair, Orthopedic Surgery Additional Past Surgical History / Comment(s): Bladder suspension with mesh, right carpal tunnel surgery. HI PROCEDURE, COLONOSCOPY/EGD Past Anesthesia/Blood Transfusion Reactions: Previous Problems w/ Anesthesia, Postoperative Nausea & Vomiting (PONV) Additional Past Anesthesia/Blood Transfusion Reaction / Comment(s): "Did well with patch behind ear." Smoking Status: Former smoker - Past Family History Father Family Medical History: Cancer Additional Family Medical History / Comment(s): Stomach cancer. Mother Additional Family Medical History / Comment(s): from "toxicity in blood" Medications and Allergies Home Medications Medication Instructions Recorded Confirmed Type Albuterol Inhaler [Ventolin Hfa 1 - 2 puff INHALATION RT-Q6H PRN 12/17/16 08/25/22 History Inhaler] Multivit with Calcium,Iron,Min 1 each PO DAILY 08/20/22 08/25/22 History [Women's Multivitamin] Allergies Allergy/AdvReac Type Severity Reaction Status Date / Time Penicillins Allergy Unknown Verified 05/31/23 07:34 Childhood Surgical - Exam Vital Signs Temp Pulse Resp BP Pulse Ox 97.2 F L 71 16 168/85 98 08/25/22 07:30 08/25/22 07:30 08/25/22 07:30 08/25/22 07:30 08/25/22 07:30
[2022-08-25] MEDS ORDERED: PROPOFOL 10 MG/ML 20 ML VIAL IV ONE (08:04)
[2022-08-25] MEDS ORDERED: LIDOCAINE 2% INJ 20 MG/ML (2 ML VIAL) ONE (08:04)
[2022-08-25 08:38] VITALS: BP 131/84; PULSE 56
--- NOTE | 2022-08-25 09:06 | P.PCN ---
Date of Procedure: 08/25/22 Description of Procedure: PREOPERATIVE DIAGNOSIS: Dysphagia Gastroesophageal reflux disease. Morbid obesity. POSTOPERATIVE DIAGNOSIS: Gastroesophageal reflux disease with severe erosive esophagitis Esophageal ulceration Morbid obesity. Gastritis. Diaphragmatic hiatal hernia, recurrent OPERATION: Esophagogastroduodenoscopy with biopsies along antrum, duodenum, esophagus SURGEON: Regla Josue MD ANESTHESIA: MAC. INDICATIONS: The patient is a 52-year-old female who presents with dysphagia and reflux disease. Benefits and risks of the procedure were described. Informed consent was obtained. DESCRIPTION: The patient was brought into the endoscopy suite and laid in the left lateral decubitus position. An Olympus gastroscope was passed along the posterior oropharynx down to the distal esophagus where the squamocolumnar junction was encountered at 32 cm from the incisors. The stomach was entered and no bile reflux was found. Additional findings are listed below. Biopsies with cold forceps were obtained of the antrum. The first through third portion of the duodenum was examined. Retroflexion of the scope confirmed Hill grade 4 lower esophageal valve. The squamocolumnar junction demonstrated LA grade B erosive esophagitis. The stomach was desufflated. The patient tolerated the procedure well. FINDINGS: Squamocolumnar junction 32 cm from the incisors. Diaphragmatic hiatus at 36 cm. Hiatal hernia, 4 cm, sliding Hill grade 4 lower esophageal valve. LA grade D erosive esophagitis with esophageal ulceration at 36 cm from the incisors Biopsies obtained of the esophagus, duodenum, stomach Chronic gastritis RECOMMENDATIONS: Double treatment with Carafate and omeprazole due to severe erosive esophagitis and ulceration Recommend repeat upper endoscopy in 4-6 weeks Plan - Discharge Summary Discharge Rx Participant: No New Discharge Prescriptions: New Omeprazole [PriLOSEC] 40 mg PO DAILY #30 cap Sucralfate [Carafate] 1 gm PO BID #60 tablet Continue Albuterol Inhaler [Ventolin Hfa Inhaler] 1 - 2 puff INHALATION RT-Q6H PRN PRN Reason: Shortness Of Breath Multivit with Calcium,Iron,Min [Women's Multivitamin] 1 each PO DAILY Discharge Medication List Albuterol Inhaler [Ventolin Hfa Inhaler] 1 - 2 puff INHALATION RT-Q6H PRN 12/17/16 [History] Multivit with Calcium,Iron,Min [Women's Multivitamin] 1 each PO DAILY 08/20/22 [History] Omeprazole [PriLOSEC] 40 mg PO DAILY #30 cap 08/25/22 [Rx] Sucralfate [Carafate] 1 gm PO BID #60 tablet 08/25/22 [Rx] Follow up Appointment(s)/Referral(s): Regla Josue MD [STAFF PHYSICIAN] - 08/31/22 9:00 am Patient Instructions/Handouts: Hiatal Hernia (DC), Diet for Stomach Ulcers and Gastritis (GEN), Thibodeaux Esophagus (GEN) Discharge Disposition: HOME SELF-CARE
== END 2022-08-25 09:30 | disposition home or self-care (01) ==
LOC: ORWHC2ENDO 07:12
PROVIDERS: ATTEND Surgery Plastic and Reconstructive Surgery
DX: K31.89 Other diseases of stomach and duodenum (principal); K21.00 Gastro-esophageal reflux disease with esophagitis, without bleeding; K44.9 Diaphragmatic hernia without obstruction or gangrene; K29.50 Unspecified chronic gastritis without bleeding; K22.10 Ulcer of esophagus without bleeding; E66.01 Morbid (severe) obesity due to excess calories; J45.909 Unspecified asthma, uncomplicated; K21.9 Gastro-esophageal reflux disease without esophagitis; M19.90 Unspecified osteoarthritis, unspecified site; Z98.890 Other specified postprocedural states; Z90.49 Acquired absence of other specified parts of digestive tract; Z87.891 Personal history of nicotine dependence; Z79.51 Long term (current) use of inhaled steroids; Z79.899 Other long term (current) drug therapy; Z88.0 Allergy status to penicillin; Z68.41 Body mass index [BMI] 40.0-44.9, adult
CPT/HCPCS: 88305; 88312; 43239; J2704; J2001

== ENCOUNTER 2022-11-18 06:44 | Day surgery (SDC) | payer OTHER ==
[~2022-11-18 06:44] MED LIST changes: -LACTATED RINGERS 1,000 ML IV SCH
[2022-11-18] MEDS: LACTATED RINGERS 1,000 ML IV SCH ×2 (07:10→07:36)
[2022-11-18 07:22] VITALS: TEMP 97.4
[2022-11-18] MEDS ORDERED: PROPOFOL 10 MG/ML 20 ML VIAL IV ONE (07:35)
[2022-11-18] MEDS ORDERED: LIDOCAINE 2% INJ 20 MG/ML (2 ML VIAL) ONE (07:35)
--- NOTE | 2022-11-18 07:40 | P.GSHP ---
History of Present Illness H&P Date: 11/18/22 CHIEF COMPLAINT: GERD HISTORY OF PRESENT ILLNESS: The patient is a 52-year-old female who presents reports gastroesophageal reflux disease. Upper endoscopy was offered for further evaluation and management. PAST MEDICAL HISTORY: Please see list. PAST SURGICAL HISTORY: Please see list. MEDICATIONS: Please see list. ALLERGIES: Please see list. SOCIAL HISTORY: No illicit drug use FAMILY HISTORY: No reports of Crohn disease or ulcerative colitis. REVIEW OF ORGAN SYSTEMS: CONSTITUTIONAL: No reports of fevers or chills. GI: Denies any blood in stools or constipation. PHYSICAL EXAM: VITAL SIGNS: Stable GENERAL: Well-developed and pleasant in no acute distress. HEENT: No scleral icterus. Extraocular movements grossly intact. Moist buccal mucosa. NECK: Supple without lymphadenopathy. CHEST: Unlabored respirations. Equal bilateral excursions. CARDIOVASCULAR: Regular rate and rhythm. Distal 2+ pulses. ABDOMEN: Soft, nondistended. MUSCULOSKELETAL: No clubbing, cyanosis, or edema. ASSESSMENT: 1. Gastroesophageal reflux disease PLAN: 1. Recommend proceeding with an upper endoscopy Past Medical History Past Medical History: Asthma, GERD/Reflux, Osteoarthritis (OA) Additional Past Medical History / Comment(s): Hiatal hernia. History of Any Multi-Drug Resistant Organisms: None Reported Past Surgical History: Bladder Surgery, Cholecystectomy, Hernia Repair, Orthopedic Surgery Additional Past Surgical History / Comment(s): Bladder suspension with mesh, right carpal tunnel surgery. Past Anesthesia/Blood Transfusion Reactions: No Reported Reaction, Postoperative Nausea & Vomiting (PONV) Additional Past Anesthesia/Blood Transfusion Reaction / Comment(s): "Did well w ith patch behind ear." Past Psychological History: No Psychological Hx Reported Smoking Status: Former smoker Past Alcohol Use History: None Reported Additional Past Alcohol Use History / Comment(s): Smoked for couple years in high school. Past Drug Use History: None Reported - Past Family History Father Family Medical History: Cancer Additional Family Medical History / Comment(s): Stomach cancer. Mother Additional Family Medical History / Comment(s): from "toxicity in blood" Medications and Allergies Home Medications Medication Instructions Recorded Confirmed Type Albuterol Inhaler [Ventolin Hfa 1 - 2 puff INHALATION RT-Q6H PRN 12/17/16 11/18/22 History Inhaler] Multivit with Calcium,Iron,Min 1 each PO DAILY 08/20/22 11/18/22 History [Women's Multivitamin] Sucralfate [Carafate] 1 gm PO BID #60 tablet 08/25/22 11/18/22 Rx Omeprazole [PriLOSEC] 40 mg PO QAM 11/16/22 11/18/22 History Allergies Allergy/AdvReac Type Severity Reaction Status Date / Time Penicillins Allergy Unknown Verified 11/18/22 07:04 Childhood
[2022-11-18 07:58] VITALS: RESP 18
[2022-11-18 08:23] VITALS: BP 117/79; PULSE 62
--- NOTE | 2022-11-18 08:36 | P.PCN ---
Date of Procedure: 11/18/22 Description of Procedure: PREOPERATIVE DIAGNOSIS: Gastroesophageal reflux disease. Morbid obesity. POSTOPERATIVE DIAGNOSIS: Gastroesophageal reflux disease. Morbid obesity. Gastritis. Diaphragmatic hiatal hernia Esophageal ulcer OPERATION: Esophagogastroduodenoscopy with biopsies along antrum and duodenum, duodenum SURGEON: Regla Josue MD ANESTHESIA: MAC. INDICATIONS: The patient is a 52-year-old female who presents with reflux disease. Benefits and risks of the procedure were described. Informed consent was obtained. DESCRIPTION: The patient was brought into the endoscopy suite and laid in the left lateral decubitus position. An Olympus gastroscope was passed along the posterior oroph arynx down to the distal esophagus where the squamocolumnar junction was encountered at 35 cm from the incisors. The stomach was entered and no bile reflux was found. Additional findings are listed below. Biopsies with cold forceps were obtained of the antrum. The first through third portion of the duodenum was examined. Retroflexion of the scope confirmed Hill grade 3 lower esophageal valve. The squamocolumnar junction demonstrated LA grade B erosive esophagitis. The stomach was desufflated. The patient tolerated the procedure well. FINDINGS: Squamocolumnar junction 35 cm from the incisors. Diaphragmatic hiatus at 40 cm. Hiatal hernia, 5 cm Hill grade 3 lower esophageal valve. LA grade B erosive esophagitis and also GE junction, biopsy obtained Biopsies obtained of the duodenum. Chronic gastritis with biopsies obtained. RECOMMENDATIONS: 1. Recommend conversion to gastric bypass for recurrent reflux disease, morbid obesity Plan - Discharge Summary Discharge Rx Participant: No New Discharge Prescriptions: Continue Albuterol Inhaler [Ventolin Hfa Inhaler] 1 - 2 puff INHALATION RT-Q6H PRN PRN Reason: Shortness Of Breath Multivit with Calcium,Iron,Min [Women's Multivitamin] 1 each PO DAILY Sucralfate [Carafate] 1 gm PO BID #60 tablet Omeprazole [PriLOSEC] 40 mg PO QAM Discharge Medication List Albuterol Inhaler [Ventolin Hfa Inhaler] 1 - 2 puff INHALATION RT-Q6H PRN 12/17/16 [History] Multivit with Calcium,Iron,Min [Women's Multivitamin] 1 each PO DAILY 08/20/22 [ History] Sucralfate [Carafate] 1 gm PO BID #60 tablet 08/25/22 [Rx] Omeprazole [PriLOSEC] 40 mg PO QAM 11/16/22 [History] Follow up Appointment(s)/Referral(s): Regla Josue MD [STAFF PHYSICIAN] - 12/07/22 1:45 pm Patient Instructions/Handouts: Hiatal Hernia (ED), Peptic Ulcer (GEN) Discharge Disposition: HOME SELF-CARE
== END 2022-11-18 08:52 | disposition home or self-care (01) ==
LOC: ORWHC2ENDO 06:44
PROVIDERS: ATTEND Surgery Plastic and Reconstructive Surgery
DX: K29.50 Unspecified chronic gastritis without bleeding (principal); K21.00 Gastro-esophageal reflux disease with esophagitis, without bleeding; E66.01 Morbid (severe) obesity due to excess calories; K44.9 Diaphragmatic hernia without obstruction or gangrene; K22.10 Ulcer of esophagus without bleeding; Z79.899 Other long term (current) drug therapy; Z68.1 Body mass index [BMI] 19.9 or less, adult; J45.909 Unspecified asthma, uncomplicated; M19.90 Unspecified osteoarthritis, unspecified site; Z90.49 Acquired absence of other specified parts of digestive tract; Z98.890 Other specified postprocedural states; Z87.891 Personal history of nicotine dependence; Z88.0 Allergy status to penicillin
CPT/HCPCS: 88305; 43239; J2704; J2001

== ENCOUNTER → 2023-09-20 | Outpatient (CLI) | payer OTHER ==
--- NOTE | 2023-09-20 18:29 | MR ---
EXAMINATION TYPE: MR knee RT wo con DATE OF EXAM: 09/20/2023 COMPARISON: None HISTORY: Right knee pain and swelling since Dec 2022 TECHNIQUE: Multiplanar, multisequence imaging of the right knee is performed without IV contrast. FINDINGS: There is no bone contusion or fracture. There is a [id number] joint effusion. There is near complete loss of the articular cartilage of the medial patellar facet. There is moderat e to marked thinning of the articular cartilage of the medial compartment of the knee with mild subch ondral bone changes consistent with moderate osteoarthritis. The lateral compartment cartilage is wel l preserved.. The cruciate and lateral collateral ligaments are intact. There is a mild strain of the medial collat eral ligament. There is a complex tear of the body and posterior horn of the medial meniscus which is displaced medi ally beneath the medial collateral ligament secondary to significant narrowing of the medial compartm ent of knee. The lateral meniscus is intact. The quadriceps and patellar tendons are normal. The anterior fat pads are normal. There is a small ganglion cyst associated with the posterior cruciate ligament. IMPRESSION: 1. Small to moderate joint effusion. 2. Moderate osteoarthritis of the medial compartment of the knee and of the patellofemoral compartmen t. 3. Complex tear of the posterior horn and body of the medial meniscus. 4. Mild strain of the medial collateral ligament
== END | disposition home or self-care (01) ==
LOC: RADMRIMAIN 14:36
PROVIDERS: ATTEND Orthopaedic Surgery Sports Medicine
DX: M23.303 Other meniscus derangements, unspecified medial meniscus, right knee (principal); M17.11 Unilateral primary osteoarthritis, right knee; S86.911A Strain of unspecified muscle(s) and tendon(s) at lower leg level, right leg, initial encounter